=== PATIENT | male | born 1955 | race Caucasian/White ===

== ENCOUNTER 2017-08-22 06:14 | Inpatient (IN) | payer MEDICARE ==
[2017-08-22] MEDS ORDERED: Sodium Chloride 0.9% 1,000 ML IV ONE (07:24)
--- NOTE | 2017-08-22 07:24 | C.PDOC ---
History Of Present Illness 62 years old male presents to ED for complaints of cramping abdominal pain that began yesterday, 2 hours after eating a burger. Patient states symptom associated with nausea, 10 episodes of vomiting, chills, and distention. Patient also states pain radiates to back and chest. Denies diarrhea, fever, coughing, or headache. Time Seen by Provider: 08/22/17 07:09 Chief Complaint (Nursing): Abdominal Pain History Per: Patient History/Exam Limitations: no limitations Onset/Duration Of Symptoms: Days (1) Current Symptoms Are (Timing): Still Present Location Of Pain/Discomfort: Diffuse Radiation Of Pain To:: Back, Chest Quality Of Discomfort: Cramping Associated Symptoms: Chills, Nausea, Vomiting, Back Pain, Chest Pain. denies: Fever, Diarrhea, Constipation, Urinary Symptoms Exacerbating Factors: None Alleviating Factors: None Last Bowel Movement: Today Recent travel outside of the [place]: No Past Medical History Reviewed: Historical Data, Nursing Documentation, Vital Signs Vital Signs: Last Vital Signs Temp 98.8 F 08/22/17 17:38 Pulse 84 08/22/17 17:38 Resp 18 08/22/17 17:38 BP 135/85 08/22/17 17:38 Pulse Ox 95 08/22/17 17:38 - Medical History PMH: HIV, Hypercholesterolemia - [facility] Procedures APPLICATION OF SPLINT (01/26/14) Family History: States: Unknown Family Hx - Social History Hx Tobacco Use: No Hx Alcohol Use: No Hx Substance Use: No - Immunization History Hx Tetanus Toxoid Vaccination: No Hx Influenza Vaccination: No Hx Pneumococcal Vaccination: No Review Of Systems Constitutional: Positive for: Chills. Negative for: Fever Cardiovascular: Positive for: Chest Pain Respiratory: Negative for: Cough, Shortness of Breath Gastrointestinal: Positive for: Nausea, Vomiting (10 episodes ), Abdominal Pain. Negative for: Diarrhea Genitourinary: Negative for: Dysuria Musculoskeletal: Negative for: Arm Pain Neurological: Negative for: Weakness, Numbness, Headache Physical Exam - Physical Exam Appears: Well, Non-toxic, No Acute Distress Skin: Normal Color, Warm, Dry Head: Atraumatic, Normacephalic Eye(s): bilateral: Normal Inspection, PERRL, EOMI Oral Mucosa: Moist Neck: Supple Chest: Symmetrical, No Tenderness Cardiovascular: Rhythm Regular, No Murmur Respiratory: Normal Breath Sounds, No Decreased Breath Sounds, No Rales, No Rhonchi, No Wheezing Gastrointestinal/Abdominal: Soft, Tenderness (RUQ, LUQ, and LLQ) Extremity: Normal ROM, No Tenderness, No Pedal Edema, Other (Brace on left leg) Extremity: Bilateral: Normal Color And Temperature, Normal ROM Neurological/Psych: Oriented x3, Normal Speech, Normal Cognition Gait: Steady ED Course And Treatment - Laboratory Results Result Diagrams: 08/22/17 07:39 08/22/17 07:39 O2 Sat by Pulse Oximetry: 98 (RA) Pulse Ox Interpretation: Normal - Other Rad CXR X-Ray: Viewed By Me, Read By Radiologist Interpretation: HISTORY: chest pain and vomiting. COMPARISON: Chest radiographs 10/26/2012. FINDINGS: LUNGS: No active pulmonary disease. Right hemidiaphragm appears mildly elevated from an indeterminate etiology. Linear surgical material is seen at the mid right lung zone, presumably suture material. PLEURA: No significant pleural effusion identified, no pneumothorax apparent. CARDIOVASCULAR: Normal. OSSEOUS STRUCTURES: No significant abnormalities. VISUALIZED UPPER ABDOMEN: Normal. OTHER FINDINGS: None. IMPRESSION: No interval acute cardiopulmonary disease appreciable. Postop changes again seen mid right lung. - CT Scan/US Abdomen/Pelvis CT Other Rad Studies (CT/US): Read By Radiologist, Radiology Report Reviewed CT/US Interpretation: PROCEDURE: CT Abdomen and Pelvis with contrast. HISTORY : abdominal pain and vomiting. COMPARISON: None. TECHNIQUE: Contrast dose: Visipaque 320, 100 cc. Radiation dose: Total exam DLP = 728.58 mGy-cm. This CT exam was performed using one or more of the following dose reduction techniques: Automated exposure control, adjustment of the mA and/or kV according to patient size, and/or use of iterative reconstruction technique. FINDINGS: LOWER THORAX: Linear atelectasis or fibrosis in the bilateral lung bases. Nonspecific markedly hyperdense, linear radiodensity is seen in the right lower lobe base abutting the right hemidiaphragm, potentially metallic. No infiltrate or pleural effusion bilaterally. Cardiac size appears normal. LIVER: Hepatic steatosis is noted without definitive focal mass or intrahepatic biliary dilatation evident. GALLBLADDER AND BILE DUCTS: Gallbladder is distended without prominent mural thickening however vázquez cholecystic reaction is questioned related to the neck at the candace hepatis it does not appear to be related to the pancreatic neck, the gastric antrum or the duodenum. Finally, although the hepatic flexure of the colon approaches area it appears separate. Clinically correlate for cholecystitis. Questionable choledocholithiasis and proximal CBD. PANCREAS: Unremarkable. No gross lesion or ductal dilatation. SPLEEN: Unremarkable. ADRENALS: Unremarkable. No mass. KIDNEYS AND URETERS: Unremarkable. No hydronephrosis. No solid mass. VASCULATURE: Unremarkable. No aortic aneurysm. BOWEL: Unremarkable. No obstruction. No gross mural thickening. APPENDIX: Normal appendix. PERITONEUM : Unremarkable. No free fluid. No free air. LYMPH NODES: Unremarkable. No enlarged lymph nodes. BLADDER: Urine bladder is distended but thin and smooth walled. REPRODUCTIVE: Unremarkable. BONES: No acute fracture. OTHER FINDINGS: None. IMPRESSION: 1. Pattern suspicious for cholecystitis with choledocholithiasis in question at the proximal CBD. Consider follow-up ultrasonography or MRCP. 2. Hepatic steatosis. 3. No additional pertinent abdominal or pelvic findings. Abdomen US Other Rad Studies (CT/US): Read By Radiologist, Radiology Report Reviewed CT/US Interpretation: Abdominal ultrasound. History: Abdominal pain. Comparison: None available. Technique: Real-time sonography was performed through the abdomen. Findings: Liver: 16.5 centimeters in length. Increased echogenicity of the hepatic parenchymal cortex suggestive for fatty infiltration versus hepatic parenchymal disease. Clinical correlation. Gallbladder: Calculi and sludge. Gallbladder wall thickening measuring up to 5 millimeters. Associated gallbladder wall edema. Pericholecystic fluid. Negative sonographic Monreal's sign. Common bile duct measures 5.5 millimeters, within normal limits. Pancreas not well visualized. Spleen measures 9.2 centimeters in length, within normal limits. Visualized aorta and IVC are grossly preserved. Right kidney: 13.1 x 5.0 x 6.0 centimeters. No calculi or hydronephrosis. Left kidney: 13.2 x 6.5 x 6.3 centimeters. No calculi or hydronephrosis. Impression: 1. Cholelithiasis and sludge in the gallbladder with associated gallbladder wall thickening measuring up to 5 millimeters. Associated gallbladder wall edema and pericholecystic fluid. These findings may represent a cholecystitis. Clinical correlation. Correlation with nuclear medicine study may be helpful if clinically indicated. 2. Increased echogenicity of the hepatic parenchymal cortex suggestive for fatty infiltration versus hepatic parenchymal disease. Clinical correlation. 3. Pancreas not well visualized. Medical Decision Making Medical Decision Making: Plan: - Administered Pepcid, ZOfran and IV fluids. - Ordered EKG, CT abdomen/Pelvis, blood work, CXR, urinalysis, and US of abdomen. EKG: - Normal sinus rhythm at 60bpm - No axis - No ST wave changes. 1:13PM: - Spoke to hospitalist, Tanner Conroy, for admission. Disposition - Disposition Disposition: HOSPITALIZED Disposition Time: 13:31 Condition: GOOD - Clinical Impression Clinical Impression: Abdominal pain, Cholecystitis - Scribe Statement The provider has reviewed the documentation as recorded by the Scribe Davina Domínguez All medical record entries made by the Scribe were at my direction and personally dictated by me. I have reviewed the chart and agree that the record accurately reflects my personal performance of the history, physical exam, medical decision making, and the department course for this patient. I have also personally directed, reviewed, and agree with the discharge instructions and disposition. Decision To Admit - Pt Status Changed To: Hospital Disposition Of: Inpatient - Admit Certification Admit to Inpatient:: After my assessment, the patient will require hospitalization for at least two midnights. This is because of the severity of symptoms shown, intensity of services needed, and/or the medical risk in this patient being treated as an outpatient. - InPatient: Physician Admission Certification:: Pt presented with complaint of abdominal pain and vomitiing. Ct shows cholecystitis. Pt will be admitted to Medicine and surgery will follow. - . Bed Request Type: Regular Admitting Physician: August Conroy Patient Diagnosis: Cholecystitis, Abdominal pain
[2017-08-22] MEDS ORDERED: Sodium Chloride 0.9% 1,000 ML ONE (07:33)
[2017-08-22] MEDS ORDERED: Iohexol 240 (50 ml) ONE (07:33)
[2017-08-22 07:49] LABS: BASO % 0.1 % (0.0-2.0); EOS % 0.1 % (0.0-4.0); HEMOGLOBIN 14.4 g/dL (12.0-18.0); LYMPH # 0.3 K/uL (1.0-4.3); LYMPH % 4.2 % (20.0-40.0); MEAN CELL VOLUME 94.3 fL (80.0-94.0); MEAN CORPUSCULAR HEMOGLOBIN 33.6 pg (27.0-31.0); MEAN CORPUSCULAR HGB CONC 35.6 g/dL (33.0-37.0); MEAN PLATELET VOLUME 8.7 fL (7.2-11.7); MONO # 0.4 K/uL (0.0-0.8); MONO % 5.4 % (0.0-10.0); NEUT # 6.8 K/uL (1.8-7.0); NEUT % 90.2 % (50.0-75.0); PLATELET COUNT 266 K/uL (130-400); RBC 4.29 Mil/uL (4.40-5.90); WHITE BLOOD COUNT 7.5 K/uL (4.8-10.8)
[2017-08-22 08:06] LABS: ALB/GLOB RATIO 0.9 (1.0-2.1); ALBUMIN 4.4 g/dL (3.5-5.0); CALCIUM 8.9 mg/dl (8.6-10.4); GFR AFRICAN-AMERICAN > 60; GFR NON-AFRICAN AMERICAN > 60; LIPASE 88 U/L (23-300)
[2017-08-22 08:08] LABS: ALT/SGPT 445 U/L (21-72); AST/SGOT 651 U/L (17-59); BLOOD UREA NITROGEN 11 mg/dL (9-20)
[2017-08-22 08:14] LABS: URINE BILIRUBIN NEGATIVE (NEGATIVE); URINE BLOOD NEGATIVE (NEGATIVE); URINE CLARITY Clear (Clear); URINE COLOR Amber (YELLOW); URINE GLUCOSE (UA) NORMAL (Normal); URINE LEUKOCYTE ESTERASE NEG Leu/uL (Negative); URINE PROTEIN 1+ mg/dL (NEGATIVE)
[2017-08-22 08:18] LABS: BANDS 7 % (0-2); LYMPHOCYTE 5 % (20-40); MONOCYTE 7 % (0-10); NEUTROPHIL 81 % (50-75); PLATELET ESTIMATE NORMAL (NORMAL); TOTAL CELLS COUNTED 100
[2017-08-22] MEDS ORDERED: Iohexol 240 (50 ml) PO ONE (08:20)
[2017-08-22] MEDS ORDERED: Morphine 4 MG/ML VIAL IV ONE ×2 (08:27→13:06)
[2017-08-22] MEDS ORDERED: Morphine 4 MG/ML VIAL ONE ×2 (09:02→13:17)
[2017-08-22] MEDS ORDERED: Iodixanol 320 MG/ML 100 ML BOTTLE IV ONE (10:10)
--- NOTE | 2017-08-22 11:04 | RAD ---
HISTORY: chest pain and vomiting COMPARISON: Chest radiographs 10/26/2012. FINDINGS: LUNGS: No active pulmonary disease. Right hemidiaphragm appears mildly elevated from an indeterminate etiology. Linear surgical material is seen at the mid right lung zone, presumably suture material. PLEURA: No significant pleural effusion identified, no pneumothorax apparent. CARDIOVASCULAR: Normal. OSSEOUS STRUCTURES: No significant abnormalities. VISUALIZED UPPER ABDOMEN: Normal. OTHER FINDINGS: None. IMPRESSION: No interval acute cardiopulmonary disease appreciable. Postop changes again seen mid right lung.
--- NOTE | 2017-08-22 12:06 | CT ---
PROCEDURE: CT Abdomen and Pelvis with contrast HISTORY: abdominal pain and vomiting COMPARISON: None. TECHNIQUE: Contrast dose: Visipaque 320, 100 cc Radiation dose: Total exam DLP = 728.58 mGy-cm. This CT exam was performed using one or more of the following dose reduction techniques: Automated exposure control, adjustment of the mA and/or kV according to patient size, and/or use of iterative reconstruction technique. FINDINGS: LOWER THORAX: Linear atelectasis or fibrosis in the bilateral lung bases. Nonspecific markedly hyperdense, linear radiodensity is seen in the right lower lobe base abutting the right hemidiaphragm, potentially metallic. No infiltrate or pleural effusion bilaterally. Cardiac size appears normal. LIVER: Hepatic steatosis is noted without definitive focal mass or intrahepatic biliary dilatation evident. GALLBLADDER AND BILE DUCTS: Gallbladder is distended without prominent mural thickening however vázquez cholecystic reaction is questioned related to the neck at the candace hepatis it does not appear to be related to the pancreatic neck, the gastric antrum or the duodenum. Finally, although the hepatic flexure of the colon approaches area it appears separate. Clinically correlate for cholecystitis. Questionable choledocholithiasis and proximal CBD. PANCREAS: Unremarkable. No gross lesion or ductal dilatation. SPLEEN: Unremarkable. ADRENALS: Unremarkable. No mass. KIDNEYS AND URETERS: Unremarkable. No hydronephrosis. No solid mass. VASCULATURE: Unremarkable. No aortic aneurysm. BOWEL: Unremarkable. No obstruction. No gross mural thickening. APPENDIX: Normal appendix. PERITONEUM: Unremarkable. No free fluid. No free air. LYMPH NODES: Unremarkable. No enlarged lymph nodes. BLADDER: Urine bladder is distended but thin and smooth walled. REPRODUCTIVE: Unremarkable. BONES: No acute fracture. OTHER FINDINGS: None. IMPRESSION: 1. Pattern suspicious for cholecystitis with choledocholithiasis in question at the proximal CBD. Consider follow-up ultrasonography or MRCP. 2. Hepatic steatosis. 3. No additional pertinent abdominal or pelvic findings.
--- NOTE | 2017-08-22 14:15 | US ---
Abdominal ultrasound History: Abdominal pain. Comparison: None available. Technique: Real-time sonography was performed through the abdomen. Findings: Liver: 16.5 centimeters in length. Increased echogenicity of the hepatic parenchymal cortex suggestive for fatty infiltration versus hepatic parenchymal disease. Clinical correlation. Gallbladder: Calculi and sludge. Gallbladder wall thickening measuring up to 5 millimeters. Associated gallbladder wall edema. Pericholecystic fluid. Negative sonographic Monreal's sign. Common bile duct measures 5.5 millimeters, within normal limits. Pancreas not well visualized. Spleen measures 9.2 centimeters in length, within normal limits. Visualized aorta and IVC are grossly preserved. Right kidney: 13.1 x 5.0 x 6.0 centimeters. No calculi or hydronephrosis. Left kidney: 13.2 x 6.5 x 6.3 centimeters. No calculi or hydronephrosis. Impression: 1. Cholelithiasis and sludge in the gallbladder with associated gallbladder wall thickening measuring up to 5 millimeters. Associated gallbladder wall edema and pericholecystic fluid. These findings may represent a cholecystitis. Clinical correlation. Correlation with nuclear medicine study may be helpful if clinically indicated. 2. Increased echogenicity of the hepatic parenchymal cortex suggestive for fatty infiltration versus hepatic parenchymal disease. Clinical correlation. 3. Pancreas not well visualized.
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
--- NOTE | 2017-08-22 14:56 | CP.PCM.CON ---
<Chema Schroeder - Last Filed: 08/22/17 14:51> History of Present Illness - History of Present Illness History of Present Illness: GI Consult Note - Marium Schroeder PGY2 HPI: Patient is a 62yo male with past medical history of HIV on HAART therapy, asthma, HLD that presents c/o right upper quadrant abdominal pain since yesterday afternoon. Patient reported eating a burger for lunch and thereafter experiencing abdominal pain with nausea and non-bilious, non-bloody vomiting. He reports no apparent alleviating or exacerbating factors, pain is 10/10 and non-radiating. Prior to this, patient states he was in his usual state of health. Denies chest pain, palpitations, SOB, fever, chills, cough, focal weakness, numbness, tingling. 12point ROS as per above otherwise negative PMH: as stated above PSH: AVM Malformation repair Allergies: seasonal allergies Social Hx: Denies alcohol, tobacco and illicit drug use; retired Family Hx: Sister: Breast Ca; no family history of colon cancer Endo Hx: Colonoscopy 2 years prior [place] [facility] [place] Past Patient History - Infectious Disease Hx of Infectious Diseases: None - Past Social History Smoking Status: Never Smoked - CARDIAC Hx Hypercholesterolemia: Yes - NEUROLOGICAL HX Cerebrovascular Accident: Yes (left sided weakness) - HEMATOLOGICAL/ONCOLOGICAL Hx Human Immunodeficiency Virus (HIV): Yes - PSYCHIATRIC Hx Substance Use: No - SURGICAL HISTORY Hx Surgeries: No - ANESTHESIA Hx Anesthesia: No Meds Allergies/Adverse Reactions: Allergies Allergy/AdvReac Type Severity Reaction Status Date / Time No Known Allergies Allergy Verified 08/22/17 06:32 - Medications Medications: Current Medications Sodium Chloride (Sodium Chloride 0.9%) 1,000 mls @ 100 mls/hr IV .Q10H [facility] Ondansetron HCl (Zofran Inj) 4 mg IVP Q6H PRN PRN Reason: Nausea/Vomiting Pantoprazole Sodium (Protonix Inj) 40 mg IVP DAILY [facility] Physical Exam - Constitutional Appears: No Acute Distress - Head Exam Head Exam: ATRAUMATIC, NORMAL INSPECTION, NORMOCEPHALIC - Eye Exam Eye Exam: EOMI, PERRL - ENT Exam ENT Exam: Mucous Membranes Moist - Respiratory Exam Respiratory Exam: Clear to Auscultation Bilateral. absent: Rales, Rhonchi, Wheezes - Cardiovascular Exam Cardiovascular Exam: RRR, +S1, +S2. absent: Clicks, Gallop, JVD, Rubs - GI/Abdominal Exam GI & Abdominal Exam: Soft, Tenderness (RUQ abdominal tenderness). absent: Distended, Firm, Guarding, Rigid Additional comments: no palpable hepatosplenomegaly - Extremities Exam Extremities exam: Positive for: normal inspection. Negative for: pedal edema - Neurological Exam Neurological exam: Alert, CN II-XII Intact, Oriented x3 - Psychiatric Exam Psychiatric exam: Normal Affect, Normal Mood - Skin Skin Exam: Dry, Intact, Normal Color, Warm Results - Vital Signs Recent Vital Signs: Last Vital Signs Temp 98.2 F 08/22/17 06:24 Pulse 66 08/22/17 06:24 Resp 20 08/22/17 06:24 BP 151/87 H 08/22/17 06:24 Pulse Ox 98 08/22/17 14:36 - Labs Result Diagrams: 08/22/17 07:39 08/22/17 07:39 Labs: Laboratory Results - last 24 hr 08/22/17 08/22/17 08/22/17 07:39 07:39 07:54 WBC 7.5 RBC 4.29 L Hgb 14.4 Hct 40.5 MCV 94.3 H MCH 33.6 H MCHC 35.6 RDW 13.0 Plt Count 266 MPV 8.7 Neut % (Auto) 90.2 H Lymph % (Auto) 4.2 L Williamson % (Auto) 5.4 Eos % (Auto) 0.1 Baso % (Auto) 0.1 Neut # (Auto) 6.8 Lymph # (Auto) 0.3 L Williamson # (Auto) 0.4 Eos # (Auto) 0.0 Baso # (Auto) 0.0 Neutrophils % (Manual) 81 H Band Neutrophils % 7 H Lymphocytes % (Manual) 5 L Monocytes % (Manual) 7 Platelet Estimate Normal RBC Morphology Normal Sodium 140 Potassium 4.0 Chloride 102 Carbon Dioxide 28 Anion Gap 14 BUN 11 Creatinine 0.7 L Est GFR ( Amer) > 60 Est GFR (Non-Af Amer) > 60 Random Glucose 145 H Calcium 8.9 Total Bilirubin 2.8 H AST 651 H ALT 445 H Alkaline Phosphatase 227 H Troponin I < 0.0120 Total Protein 9.2 H Albumin 4.4 Globulin 4.9 H Albumin/Globulin Ratio 0.9 L Lipase 88 Urine Color Mitra Urine Clarity Clear Urine pH 6.0 Ur Specific Madison 1.021 Urine Protein 1+ H Urine Glucose (UA) Normal Urine Ketones Negative Urine Blood Negative Urine Nitrate Negative Urine Bilirubin Negative Urine Urobilinogen 4.0 Ur Leukocyte Esterase Neg Urine WBC (Auto) < 1 Urine RBC (Auto) 10 H Assessment & Plan - Assessment and Plan (Free Text) Plan: 62yo male with history of HIV on HAART therapy, asthma, HLD presents c/o RUQ abdominal pain secondary to acute cholecystitis 1. Acute cholecystitis 2. Elevated liver enzymes r/o choledocholithiasis 3. Hx of HIV -MRCP pending to evaluate for CBD stone -Potential ERCP to be scheduled for tomorrow -NPO after midnight -Surgical evaluation -Continue IV antibiotics as per primary team -Pain control -Repeat LFT's/INR in the AM -Hepatitis panel Patient seen and case discussed/reviewed with attending, Dr. Santos <Miguel Santos - Last Filed: 08/22/17 15:17> Meds - Medications Medications: Current Medications Efavirenz/Emtricitabine/Tenofovir (Atripla 600 Mg-200 Mg-300 Mg) tab PO DAILY [facility] PRN Reason: Protocol Sodium Chloride (Sodium Chloride 0.9%) 1,000 mls @ 100 mls/hr IV .Q10H [facility] Levetiracetam 500 mg/ Sodium (Chloride) 105 mls @ 420 mls/hr IVPB Q12H [facility] Piperacillin Sod/Tazobactam (Sod 3.375 gm/ Sodium Chloride) 100 mls @ 200 mls/ hr IVPB Q8H [facility] PRN Reason: Protocol Morphine Sulfate (Morphine) 2 mg IVP Q4H PRN PRN Reason: Pain, moderate (4-7) Ondansetron HCl (Zofran Inj) 4 mg IVP Q6H PRN PRN Reason: Nausea/Vomiting Pantoprazole Sodium (Protonix Inj) 40 mg IVP DAILY [facility] Results - Vital Signs Recent Vital Signs: Last Vital Signs Temp 98.2 F 08/22/17 06:24 Pulse 66 08/22/17 06:24 Resp 20 08/22/17 06:24 BP 151/87 H 08/22/17 06:24 Pulse Ox 98 08/22/17 14:36 - Labs Result Diagrams: 08/22/17 07:39 08/22/17 07:39 Labs: Laboratory Results - last 24 hr 08/22/17 08/22/17 08/22/17 07:39 07:39 07:54 WBC 7.5 RBC 4.29 L Hgb 14.4 Hct 40.5 MCV 94.3 H MCH 33.6 H MCHC 35.6 RDW 13.0 Plt Count 266 MPV 8.7 Neut % (Auto) 90.2 H Lymph % (Auto) 4.2 L Williamson % (Auto) 5.4 Eos % (Auto) 0.1 Baso % (Auto) 0.1 Neut # (Auto) 6.8 Lymph # (Auto) 0.3 L Williamson # (Auto) 0.4 Eos # (Auto) 0.0 Baso # (Auto) 0.0 Neutrophils % (Manual) 81 H Band Neutrophils % 7 H Lymphocytes % (Manual) 5 L Monocytes % (Manual) 7 Platelet Estimate Normal RBC Morphology Normal Sodium 140 Potassium 4.0 Chloride 102 Carbon Dioxide 28 Anion Gap 14 BUN 11 Creatinine 0.7 L Est GFR ( Amer) > 60 Est GFR (Non-Af Amer) > 60 Random Glucose 145 H Calcium 8.9 Total Bilirubin 2.8 H AST 651 H ALT 445 H Alkaline Phosphatase 227 H Total Creatine Kinase Troponin I < 0.0120 Total Protein 9.2 H Albumin 4.4 Globulin 4.9 H Albumin/Globulin Ratio 0.9 L Lipase 88 Urine Color Mitra Urine Clarity Clear Urine pH 6.0 Ur Specific [place] 1.021 Urine Protein 1+ H Urine Glucose (UA) Normal Urine Ketones Negative Urine Blood Negative Urine Nitrate Negative Urine Bilirubin Negative Urine Urobilinogen 4.0 Ur Leukocyte Esterase Neg Urine WBC (Auto) < 1 Urine RBC (Auto) 10 H 08/22/17 14:52 WBC RBC Hgb Hct MCV MCH MCHC RDW Plt Count MPV Neut % (Auto) Lymph % (Auto) Williamson % (Auto) Eos % (Auto) Baso % (Auto) Neut # (Auto) Lymph # (Auto) Williamson # (Auto) Eos # (Auto) Baso # (Auto) Neutrophils % (Manual) Band Neutrophils % Lymphocytes % (Manual) Monocytes % (Manual) Platelet Estimate RBC Morphology Sodium Potassium Chloride Carbon Dioxide Anion Gap BUN Creatinine Est GFR ( Amer) Est GFR (Non-Af Amer) Random Glucose Calcium Total Bilirubin AST ALT Alkaline Phosphatase Total Creatine Kinase 46 L Troponin I Total Protein Albumin Globulin Albumin/Globulin Ratio Lipase Urine Color Urine Clarity Urine pH Ur Specific Madison Urine Protein Urine Glucose (UA) Urine Ketones Urine Blood Urine Nitrate Urine Bilirubin Urine Urobilinogen Ur Leukocyte Esterase Urine WBC (Auto) Urine RBC (Auto) Attending/Attestation - Attestation I have personally seen and examined this patient.: Yes I have fully participated in the care of the patient.: Yes I have reviewed all pertinent clinical information: Yes Notes (Text): 08/22/17 15:12 I have seen and examined patient with GI fellow and electromedical equipment technician. Agree with above documentation with the following additions. In brief, this is a 62 year old male with history of HIV on HAART, hyperlipidemia who presents to hospital with complaint of sudden onset abdominal pain yesterday following meal consumption. Prior to this he was in usual state of health and is typically physically active and walks several miles per day. He describes eating a burger and developing sharp 10/10 intensity RUQ abdominal pain that radiates to back. This was associated with nausea and non-bloody emesis. He denies fever/ chills, weight loss, rectal bleeding, or similar prior episodes. No prior history of liver disease. He had a colonoscopy 2 years ago which was normal as per patient. HIV on HAART Hyperlipidemia Abdominal pain, transaminitis Abdominal US and CT imaging reviewed by me showing thickened gallbladder wall with elisa-cholecystic fluid suggestive of cholecystitis. CBD normal caliber on abdominal US, though CT did not correspond appropriately - NPO - Begin antibiotic therapy - Obtain blood cultures - Fractionate bilirubin - Continue to monitor LFTs, obtain viral hepatitis panel - Obtain MRCP to rule out choledocholithiasis - Follow up surgical recommendations - Following imaging results, will determine whether patient would benefit from further endoscopic intervention with ERCP +/- EUS. Will continue to monitor patient clinical course.
[2017-08-22 15:21] LABS: CK-MB < 0.22 ng/mL (0.0-3.38)
[2017-08-22] MEDS: Sodium Chloride 0.9% 1,000 ML IV SCH (16:04)
[2017-08-22] MEDS: levETIRAcetam 500 MG in Sodium Chloride 0.9% 100 ML IVPB SCH (16:05)
[2017-08-22] MEDS: Efavirenz/Emtricitabine/Teno 1 TAB PO SCH (16:11)
[2017-08-22 16:20] LABS: INR 1.2; PROTHROMBIN TIME 12.8 SECONDS (9.7-12.2)
[2017-08-22 16:42] LABS: T4 6.14 ug/dL (5.5-11.0)
[2017-08-22 16:57] LABS: HEPATITIS B SURFACE AG Negative (NEGATIVE)
[2017-08-22] MEDS ORDERED: Piperacillin/Tazobact 3.375 GM in Sodium Chloride 100 ML IVPB SCH (17:00)
[2017-08-22 17:03] LABS: HEPATITIS B CORE AB NEGATIVE (NEGATIVE)
[2017-08-22 17:14] LABS: HEPATITIS C ANTIBODY NEGATIVE (NEGATIVE)
[2017-08-22 18:00] LABS: HEPATITIS A IGM NEGATIVE (NEGATIVE)
[2017-08-22 20:16] LABS: CK-MB 0.22 ng/mL (0.0-3.38)
[2017-08-22] MEDS: Fluticasone-Salmeterol 500-50mcg Diskus INH SCH (20:16)
[2017-08-22] MEDS: Piperacill/Tazo 3.375gm in Dex 3.375 GM/50 ML BAG IVPB SCH (22:06)
[2017-08-23] MEDS: Sodium Chloride 0.9% 1,000 ML IV SCH ×3 (01:00→10:32)
[2017-08-23] MEDS: Morphine 4 MG/ML VIAL IVP PRN ×3 (03:02→20:19)
[2017-08-23] MEDS: levETIRAcetam 500 MG in Sodium Chloride 0.9% 100 ML IVPB SCH ×2 (03:32→16:54)
--- NOTE | 2017-08-23 05:48 | CARD ---
APPROVED REPORT EKG Measurement Heart [id number] <Conclusion> Normal sinus rhythm Normal ECG
[2017-08-23] MEDS: Piperacill/Tazo 3.375gm in Dex 3.375 GM/50 ML BAG IVPB SCH ×4 (05:49→22:05)
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
[2017-08-23 07:04] LABS: BASO % 0.1 % (0.0-2.0); EOS % 0.1 % (0.0-4.0); HEMOGLOBIN 13.6 g/dL (12.0-18.0); LYMPH # 0.8 K/uL (1.0-4.3); LYMPH % 7.2 % (20.0-40.0); MEAN CELL VOLUME 94.9 fL (80.0-94.0); MEAN CORPUSCULAR HEMOGLOBIN 32.9 pg (27.0-31.0); MEAN CORPUSCULAR HGB CONC 34.6 g/dL (33.0-37.0); MEAN PLATELET VOLUME 8.6 fL (7.2-11.7); MONO # 0.5 K/uL (0.0-0.8); MONO % 4.8 % (0.0-10.0); NEUT # 9.8 K/uL (1.8-7.0); NEUT % 87.8 % (50.0-75.0); PLATELET COUNT 223 K/uL (130-400); RBC 4.14 Mil/uL (4.40-5.90); RED CELL DISTRIBUTION WIDTH 13.3 % (11.5-14.5); WHITE BLOOD COUNT 11.2 K/uL (4.8-10.8)
[2017-08-23 07:23] LABS: ALB/GLOB RATIO 0.8 (1.0-2.1); ALBUMIN 3.7 g/dL (3.5-5.0); ALT/SGPT 267 U/L (21-72); AST/SGOT 193 U/L (17-59); BLOOD UREA NITROGEN 6 mg/dL (9-20); CALCIUM 8.5 mg/dl (8.6-10.4); GFR AFRICAN-AMERICAN > 60; GFR NON-AFRICAN AMERICAN > 60
[2017-08-23] MEDS: Fluticasone-Salmeterol 500-50mcg Diskus INH SCH ×2 (07:49→19:41)
[2017-08-23 08:16] LABS: BANDS 9 % (0-2); LYMPHOCYTE 6 % (20-40); MONOCYTE 6 % (0-10); NEUTROPHIL 79 % (50-75); PLATELET ESTIMATE NORMAL (NORMAL); TOTAL CELLS COUNTED 100
--- NOTE | 2017-08-23 09:58 | CP.PCM.PN ---
<Chema Schroeder - Last Filed: 08/23/17 09:53> Subjective - Date & Time of Evaluation Date of Evaluation: 08/23/17 Time of Evaluation: 09:53 - Subjective Subjective: GI Progress note - Marium Schroeder PGY2 Patient seen and examined at bedside this morning. No acute overnight events reported. MRCP results reviewed and discussed with patient. Denies abdominal pain, nausea, vomiting. Plan for cholecystectomy by surgical team today. 12point ROS as per above otherwise negative Objective - Vital Signs/Intake and Output Vital Signs (last 24 hours): Temp Pulse Resp BP Pulse Ox 98.1 F 89 20 126/71 94 L 08/23/17 08:27 08/23/17 08:27 08/23/17 08:27 08/23/17 08:27 08/23/17 08:27 Intake and Output: 08/23/17 08/23/17 06:59 18:59 Intake Total 700 Balance 700 - Medications Medications: Current Medications Efavirenz/Emtricitabine/Tenofovir (Atripla 600 Mg-200 Mg-300 Mg) 1 tab PO DAILY [facility] PRN Reason: Protocol Last Admin: 08/22/17 16:11 Dose: 1 tab Sodium Chloride (Sodium Chloride 0.9%) 1,000 mls @ 100 mls/hr IV .Q10H [facility] Last Admin: 08/23/17 05:58 Dose: 100 mls/hr Levetiracetam 500 mg/ Sodium (Chloride) 105 mls @ 420 mls/hr IVPB Q12H [facility] Last Admin: 08/23/17 03:32 Dose: 420 mls/hr Piperacillin Sod/Tazobactam Sod (Zosyn 3.375 Gm Iv Premix) 3.375 gm in 50 mls @ 100 mls/hr IVPB Q6H [facility] PRN Reason: Protocol Last Admin: 08/23/17 05:49 Dose: 100 mls/hr Morphine Sulfate (Morphine) 2 mg IVP Q4H PRN PRN Reason: Pain, moderate (4-7) Last Admin: 08/23/17 03:02 Dose: 2 mg Ondansetron HCl (Zofran Inj) 4 mg IVP Q6H PRN PRN Reason: Nausea/Vomiting Pantoprazole Sodium (Protonix Inj) 40 mg IVP DAILY [facility] Fluticasone/Salmeterol (Advair Diskus 500/50) 1 puff INH RQ12 [facility] Last Admin: 08/23/17 07:49 Dose: 1 puff - Labs Labs: 08/23/17 06:51 08/23/17 06:51 PT 12.8 SECONDS (9.7-12.2) H 08/22/17 16:04 INR 1.2 08/22/17 16:04 APTT 30 SECONDS (21-34) 08/22/17 16:04 - Constitutional Appears: No Acute Distress - Eye Exam Eye Exam: EOMI Pupil Exam: PERRL - ENT Exam ENT Exam: Mucous Membranes Moist - Neck Exam Neck Exam: Normal Inspection - Respiratory Exam Respiratory Exam: absent: Rales, Rhonchi, Wheezes - Cardiovascular Exam Cardiovascular Exam: RRR, +S1, +S2. absent: Gallop, JVD, Rubs - GI/Abdominal Exam GI & Abdominal Exam: Soft. absent: Distended, Firm, Guarding, Rigid, Tenderness , Rebound - Extremities Exam Extremities Exam: Normal Inspection. absent: Pedal Edema - Neurological Exam Neurological Exam: Alert, Awake, Oriented x3 - Psychiatric Exam Psychiatric exam: Normal Affect, Normal Mood - Skin Skin Exam: Dry, Intact, Normal Color, Warm Assessment and Plan - Assessment and Plan (Free Text) Plan: 62yo male with history of HIV on HAART therapy, asthma, HLD presents c/o RUQ abdominal pain secondary to acute cholecystitis 1. Acute cholecystitis 2. Abdominal pain w/ transaminitis 3. Hx of HIV on HAART therapy -MRCP results reviewed; no apparent CBD stone -No plan for ERCP at this present time, however should LFT's continue to trend upwards may schedule for ERCP/EUS on Monday -Surgery on board and reportedly plan for cholecystectomy later this afternoon -Continue IV antibiotics as per primary team -Pain control -NPO -Hepatitis panel negative -Repeat LFT's in the AM Patient seen and case discussed/reviewed with attending, Dr. Martinez <Eugenio Martinez - Last Filed: 08/23/17 11:16> Objective - Vital Signs/Intake and Output Vital Signs (last 24 hours): Temp Pulse Resp BP Pulse Ox 98.1 F 89 20 126/71 94 L 08/23/17 08:27 08/23/17 08:27 08/23/17 08:27 08/23/17 08:27 08/23/17 08:27 Intake and Output: 08/23/17 08/23/17 06:59 18:59 Intake Total 700 Balance 700 - Medications Medications: Current Medications Efavirenz/Emtricitabine/Tenofovir (Atripla 600 Mg-200 Mg-300 Mg) 1 tab PO DAILY [facility] PRN Reason: Protocol Last Admin: 08/23/17 10:32 Dose: Not Given Sodium Chloride (Sodium Chloride 0.9%) 1,000 mls @ 100 mls/hr IV .Q10H [facility] Last Admin: 08/23/17 10:32 Dose: Not Given Levetiracetam 500 mg/ Sodium (Chloride) 105 mls @ 420 mls/hr IVPB Q12H [facility] Last Admin: 08/23/17 03:32 Dose: 420 mls/hr Piperacillin Sod/Tazobactam Sod (Zosyn 3.375 Gm Iv Premix) 3.375 gm in 50 mls @ 100 mls/hr IVPB Q6H [facility] PRN Reason: Protocol Last Admin: 08/23/17 11:05 Dose: 100 mls/hr Morphine Sulfate (Morphine) 2 mg IVP Q4H PRN PRN Reason: Pain, moderate (4-7) Last Admin: 08/23/17 10:36 Dose: 2 mg Ondansetron HCl (Zofran Inj) 4 mg IVP Q6H PRN PRN Reason: Nausea/Vomiting Pantoprazole Sodium (Protonix Inj) 40 mg IVP DAILY [facility] Last Admin: 08/23/17 09:50 Dose: 40 mg Fluticasone/Salmeterol (Advair Diskus 500/50) 1 puff INH RQ12 [facility] Last Admin: 08/23/17 07:49 Dose: 1 puff - Labs Labs: 08/23/17 06:51 08/23/17 06:51 PT 12.8 SECONDS (9.7-12.2) H 08/22/17 16:04 INR 1.2 08/22/17 16:04 APTT 30 SECONDS (21-34) 08/22/17 16:04 Attending/Attestation - Attestation I have personally seen and examined this patient.: Yes I have fully participated in the care of the patient.: Yes I have reviewed all pertinent clinical information, including history, physical exam and plan: Yes Notes (Text): 08/23/17 11:16 62 year old male with HIV a/w abdominal pain, elevated lfts, gallstones. MRCP negative for choledocholithiasis. May have passed stone. LFTs may lag behind. Proceed with cholecystectomy. R/o other chronic liver disease. Trend lfts. If no improvement, may consider EUS/ERCP monday.
[2017-08-23] MEDS: Efavirenz/Emtricitabine/Teno 1 TAB PO SCH (10:32)
--- NOTE | 2017-08-23 10:46 | MRI ---
PROCEDURE: Magnetic Resonance Cholangiopancreatography HISTORY: COMPARISON: Abdominal ultrasound and CT scan of the abdomen pelvis dated 08/22/2017. TECHNIQUE: Multiplanar, multisequence MR images of the abdomen were obtained, including heavily T2 weighted MRCP images of the biliary system. Rotating maximum intensity projection images of the biliary system were generated. FINDINGS: MRCP: The common bile duct is of a normal caliber. No evidence of choledocholithiasis. No intrahepatic biliary ductal dilatation. LIVER: Unremarkable. GALLBLADDER: Minimal cholelithiasis. Gallbladder distention with wall edema. SPLEEN: Unremarkable. PANCREAS: Unremarkable. ADRENALS: Unremarkable. KIDNEYS: Unremarkable. AORTA: No aneurysm. ASCITES: None. OTHER FINDINGS: None. IMPRESSION: Cholelithiasis with gallbladder wall thickening/edema may represent acute cholecystitis in the appropriate clinical setting. No evidence of choledocholithiasis. CBD within normal limits.
[2017-08-23] MEDS ORDERED: Propofol 10 mg/ml Inj (20 ML) ONE (12:00)
[2017-08-23] MEDS ORDERED: Midazolam 2 MG/2 ML VIAL ONE (12:00)
[2017-08-23] MEDS ORDERED: Neostigmine Methylsulfate 3mg/3ml Syringe IV ONE (12:26)
[2017-08-23] MEDS ORDERED: Oxycodone/Acetaminophen 5/325 mg Tab PO PRN (13:33)
[2017-08-23] MEDS: HYDROmorphone 0.5 mg/0.5 ml ISec IVP PRN ×4 (13:47→14:29)
[2017-08-23] MEDS ORDERED: Lactated Ringer's 1,000 ML IV ONE (14:15)
--- NOTE | 2017-08-23 19:59 | CON ---
DATE: ATTENDING PHYSICIAN: Mandi Sylvester DO REASON FOR CONSULTATION: AVM and CVA history and clearance before the surgery. HISTORY OF PRESENT ILLNESS: The patient is a 62-year-old gentleman with past medical history of HIV, hyperlipidemia, CVA, neuropathy, status post AVM, thrombectomy in 2006 and status post left-sided weakness post-intervention at by Dr. Celestin. The patient has been under the care of Dr. 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 The patient denies any complaints. No worsening of weakness, loss of consciousness, no history of seizures. The patient is stable neuro mann. The patient was admitted basically for abdominal pain and nausea and vomiting, and the patient has been scheduled for GI series and for possible abdominal surgery. Neuro consult was requested for clearance considering the patient's history of AVM. PAST MEDICAL HISTORY: As mentioned above. SOCIAL HISTORY: Denies alcohol abuse or drug abuse. Drinks socially. ALLERGIES: NO KNOWN ALLERGIC REACTIONS TO MEDICATIONS. THE PATIENT HAS SEASONAL ALLERGY. MEDICATIONS: , levetiracetam, Lipitor, Advair, aspirin. REVIEW OF SYSTEMS: As per H and P and ER note reviewed. PHYSICAL EXAMINATION: VITAL SIGNS: Blood pressure 126/71, pulse 89, respirations 20, temperature 98.1. MENTAL STATE: The patient is alert, awake, and oriented x3. Normal naming, repetition and comprehension. No agnosia, no apraxia. No right to left confusion. No finger agnosia. Double simultaneous stimulation intact. Cranial nerves: Pupils are symmetric and reactive. No facial asymmetry. No field defect. Tongue midline. Gag intact. Accessory nerve intact. There is some mild left central facial palsy. No field defect. Saccadic and pursuit eye movement intact. NECK: Supple. MOTOR: Slightly increased tone in the upper extremity on the left side. There is no pronation drift. Fine finger movement, finger tapping, alternative movement intact. Upper extremities, bilateral deltoid, elbow and lead producer 5/5, slightly on the left is 5-/5. Left hip flexion 4/5, knee flexion and extension 4/5, ankle 2-3/5. Right hip, knee and ankle 5/5. Deep tendon reflexes 2+ in the left upper, 3 at the knee and ankles. There is 2-3 beats of clonus on the right hip, knee, ankle 5/5. Plantars equivocal on the left, flexion on the right. SENSORY: Pinprick to light touch is slightly increased distally on the left lower extremity only, position intact. Coordination and [id number]-[id number]-mrna intact. Romberg is negative. IMAGING: No imaging of the brain recently. The patient had imaging in the past. 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 The patient has not had seizures for some time. The patient will need to take his levetiracetam before the surgery. If the patient is n.p.o., the patient should take it intravenously. Neuro mann, the patient is stable. No further workup recommended. The patient is cleared for surgery, calculated risk of complications to be considered. No contraindication for surgical intervention at this point. Thank you for the consultation. I will sign off the case. If needed, Dr. Jo will be on tomorrow morning. Arnie Blanchard MD
[2017-08-24] MEDS: Morphine 4 MG/ML VIAL IVP PRN ×5 (00:04→22:17)
--- NOTE | 2017-08-24 01:34 | OP ---
PROCEDURE DATE: 08/23/2017 PREOPERATIVE DIAGNOSIS: Acute cholecystitis. POSTOPERATIVE DIAGNOSIS: Acute cholecystitis. PROCEDURE PERFORMED: Laparoscopic cholecystectomy and repair of umbilical hernia. SURGEON: Jarad Maldonado MD ANESTHESIA: General. BLOOD LOSS: 100 mL. POSTOPERATIVE CONDITION: Stable. INDICATIONS FOR SURGERY: A 62-year-old male with acute cholecystitis, taken to the OR for laparoscopic cholecystectomy. GROSS FINDINGS: The gallbladder was acutely inflamed. There were adhesions of the omentum to both the gallbladder and to the liver. The adhesions had to be taken down quite carefully to avoid liver bleeding. The gallbladder was acutely inflamed with a thickened wall and had to be decompressed prior to removal. Both the cystic duct, common duct, and the cystic duct gallbladder junction were clearly identified prior to clipping the cystic duct. An umbilical hernia was encountered early in the procedure and repaired during the closure. DESCRIPTION OF THE PROCEDURE: The patient was taken to the operating room. General anesthesia was administered. The abdomen was prepped and draped. Periumbilical cutdown was performed. A small umbilical hernia was noted, and a blunt port was inserted through the hernia site. The abdomen was insufflated with CO2 and under direct vision, the remaining ports were placed. Next, the omentum was carefully taken off the liver bed using Endoshear scissors. During the end parts of this dissection, a complex tear was noted within the medial liver lobe. The bleeding was then repaired laparoscopically. Next, the gallbladder was decompressed and retracted. The cystic duct was carefully dissected free. The cystic duct anatomy was delineated as above, and it was clipped and divided. The cystic artery was identified, clipped and divided. The gallbladder was removed from the bed using the cautery. Bleeding in the bed was controlled using the cautery. The abdomen was irrigated with saline until clear. Bin drain was left in the gallbladder bed, and the ports were removed. The hernia was repaired with a Prolene suture and the tissue flap closure. The remaining wounds were closed with simple subcuticular Monocryl sutures. The patient tolerated the procedure well. Returned to recovery room in stable condition. Jarad Maldonado MD [facility] # [id number]
[2017-08-24] MEDS: levETIRAcetam 500 MG in Sodium Chloride 0.9% 100 ML IVPB SCH ×2 (03:56→19:07)
[2017-08-24] MEDS: Piperacill/Tazo 3.375gm in Dex 3.375 GM/50 ML BAG IVPB SCH ×4 (05:20→22:17)
--- NOTE | 2017-08-24 06:57 | CP.PCM.PN ---
<Chema Schroeder - Last Filed: 08/24/17 08:51> Subjective - Date & Time of Evaluation Date of Evaluation: 08/24/17 Time of Evaluation: 06:54 - Subjective Subjective: GI Progress note - Marium Schroeder PGY2 Patient seen and examined at bedside this morning. No acute overnight events or new complaints reported. Patient is s/p lap cedric with cindy drain in place with < 25cc of sanguinous fluid noted. Reports some mild-mod pain post procedure that is controlled with current medications. Otherwise, denies nausea , vomiting, fever, chills. 12point ROS as per above otherwise negative Objective - Vital Signs/Intake and Output Vital Signs (last 24 hours): Temp Pulse Resp BP Pulse Ox 98.4 F 80 20 115/74 95 08/24/17 04:05 08/24/17 04:05 08/24/17 04:05 08/24/17 04:05 08/24/17 04:05 Intake and Output: 08/23/17 08/24/17 18:59 06:59 Intake Total 1000 900 Output Total 310 Balance 1000 590 - Medications Medications: Current Medications Efavirenz/Emtricitabine/Tenofovir (Atripla 600 Mg-200 Mg-300 Mg) 1 tab PO DAILY [facility] PRN Reason: Protocol Last Admin: 08/23/17 10:32 Dose: Not Given Sodium Chloride (Sodium Chloride 0.9%) 1,000 mls @ 100 mls/hr IV .Q10H [facility] Last Admin: 08/23/17 10:32 Dose: Not Given Levetiracetam 500 mg/ Sodium (Chloride) 105 mls @ 420 mls/hr IVPB Q12H [facility] Last Admin: 08/24/17 03:56 Dose: 420 mls/hr Piperacillin Sod/Tazobactam Sod (Zosyn 3.375 Gm Iv Premix) 3.375 gm in 50 mls @ 100 mls/hr IVPB Q6H [facility] PRN Reason: Protocol Last Admin: 08/24/17 05:20 Dose: 100 mls/hr Morphine Sulfate (Morphine) 2 mg IVP Q4H PRN PRN Reason: Pain, moderate (4-7) Last Admin: 08/24/17 05:21 Dose: 2 mg Ondansetron HCl (Zofran Inj) 4 mg IVP Q6H PRN PRN Reason: Nausea/Vomiting Oxycodone/Acetaminophen (Percocet 5/325 Mg Tab) 2 tab PO Q4H PRN PRN Reason: pain Stop: 08/26/17 13:34 Pantoprazole Sodium (Protonix Inj) 40 mg IVP DAILY [facility] Last Admin: 08/23/17 09:50 Dose: 40 mg Fluticasone/Salmeterol (Advair Diskus 500/50) 1 puff INH RQ12 [facility] Last Admin: 08/23/17 19:41 Dose: 1 puff - Labs Labs: 08/23/17 06:51 08/23/17 06:51 PT 12.8 SECONDS (9.7-12.2) H 08/22/17 16:04 INR 1.2 08/22/17 16:04 APTT 30 SECONDS (21-34) 08/22/17 16:04 - Constitutional Appears: No Acute Distress - Head Exam Head Exam: ATRAUMATIC, NORMOCEPHALIC - Eye Exam Eye Exam: EOMI, Scleral icterus Pupil Exam: PERRL - Respiratory Exam Respiratory Exam: Clear to Ausculation Bilateral. absent: Rales, Rhonchi, Wheezes - Cardiovascular Exam Cardiovascular Exam: RRR, +S1, +S2. absent: Gallop, JVD, Rubs - GI/Abdominal Exam GI & Abdominal Exam: Soft, Tenderness. absent: Distended, Firm, Guarding, Rigid Additional comments: cindy drain in place with < 25cc drainage noted - Neurological Exam Neurological Exam: Alert, Awake, Oriented x3 - Psychiatric Exam Psychiatric exam: Normal Affect, Normal Mood - Skin Skin Exam: Dry, Intact, Warm Assessment and Plan - Assessment and Plan (Free Text) Plan: 62yo male with history of HIV on HAART therapy, asthma, HLD presents c/o RUQ abdominal pain secondary to acute cholecystitis 1. Acute cholecystitis 2. Abdominal pain w/ transaminitis 3. Hx of HIV on HAART therapy -LFT's this morning reviewed and downtrending at this time -No plan for ERCP at this present time, however we will review tomorrows labs; should they trend upwards may schedule for ERCP/EUS on Monday -MRCP results reviewed; no apparent CBD stone -Surgery on board and patient is s/p lap cedric with cindy drain in place -Continue IV antibiotics as per primary team -Pain control -NPO -Hepatitis panel negative Patient seen and case discussed/reviewed with attending, Dr. Santos <Miguel Santos - Last Filed: 08/24/17 09:43> Objective - Vital Signs/Intake and Output Vital Signs (last 24 hours): Temp Pulse Resp BP Pulse Ox 99.5 F 85 20 110/67 93 L 08/24/17 08:22 08/24/17 08:22 08/24/17 08:22 08/24/17 08:22 08/24/17 08:22 Intake and Output: 08/24/17 08/24/17 06:59 18:59 Intake Total 900 Output Total 310 Balance 590 - Medications Medications: Current Medications Efavirenz/Emtricitabine/Tenofovir (Atripla 600 Mg-200 Mg-300 Mg) 1 tab PO DAILY [facility] PRN Reason: Protocol Last Admin: 08/24/17 09:16 Dose: 1 tab Sodium Chloride (Sodium Chloride 0.9%) 1,000 mls @ 100 mls/hr IV .Q10H [facility] Last Admin: 08/23/17 10:32 Dose: Not Given Levetiracetam 500 mg/ Sodium (Chloride) 105 mls @ 420 mls/hr IVPB Q12H [facility] Last Admin: 08/24/17 03:56 Dose: 420 mls/hr Piperacillin Sod/Tazobactam Sod (Zosyn 3.375 Gm Iv Premix) 3.375 gm in 50 mls @ 100 mls/hr IVPB Q6H [facility] PRN Reason: Protocol Last Admin: 08/24/17 05:20 Dose: 100 mls/hr Morphine Sulfate (Morphine) 2 mg IVP Q4H PRN PRN Reason: Pain, moderate (4-7) Last Admin: 08/24/17 05:21 Dose: 2 mg Ondansetron HCl (Zofran Inj) 4 mg IVP Q6H PRN PRN Reason: Nausea/Vomiting Oxycodone/Acetaminophen (Percocet 5/325 Mg Tab) 2 tab PO Q4H PRN PRN Reason: pain Stop: 08/26/17 13:34 Pantoprazole Sodium (Protonix Inj) 40 mg IVP DAILY [facility] Last Admin: 08/24/17 09:15 Dose: 40 mg Fluticasone/Salmeterol (Advair Diskus 500/50) 1 puff INH RQ12 [facility] Last Admin: 08/24/17 07:50 Dose: 1 puff - Labs Labs: 08/24/17 08:00 08/24/17 08:00 PT 12.8 SECONDS (9.7-12.2) H 08/22/17 16:04 INR 1.2 08/22/17 16:04 APTT 30 SECONDS (21-34) 08/22/17 16:04 Attending/Attestation - Attestation I have personally seen and examined this patient.: Yes I have fully participated in the care of the patient.: Yes I have reviewed all pertinent clinical information, including history, physical exam and plan: Yes Notes (Text): 08/24/17 09:41 I have seen and examined patient with GI fellow and medical coding auditor. No acute events overnight. He endorses mild abdominal pain at surgical site but otherwise denies nausea, vomiting, fever/chills. Tolerating PO diet without difficulty. Review of vitals from today are normal. HIV on HAART Asthma Abdominal pain, transaminitis - acute cholecystitis, s/p cholecystectomy yesterday - Diet as tolerated - Continue with antibiotic therapy - LFTs trending down, continue to monitor - Follow up surgical recommendations - Will continue to monitor patient clinical course
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
[2017-08-24] MEDS: Fluticasone-Salmeterol 500-50mcg Diskus INH SCH ×2 (07:50→19:53)
[2017-08-24 08:32] LABS: ALB/GLOB RATIO 0.8 (1.0-2.1); ALBUMIN 3.3 g/dL (3.5-5.0); ALT/SGPT 190 U/L (21-72); AST/SGOT 136 U/L (17-59); BLOOD UREA NITROGEN 7 mg/dL (9-20); CALCIUM 8.1 mg/dl (8.6-10.4); GFR AFRICAN-AMERICAN > 60; GFR NON-AFRICAN AMERICAN > 60
[2017-08-24 08:50] LABS: BASO % 0.1 % (0.0-2.0); EOS % 0.4 % (0.0-4.0); LYMPH # 1.1 K/uL (1.0-4.3); LYMPH % 13.6 % (20.0-40.0); MEAN CELL VOLUME 94.6 fL (80.0-94.0); MEAN CORPUSCULAR HEMOGLOBIN 32.6 pg (27.0-31.0); MEAN CORPUSCULAR HGB CONC 34.5 g/dL (33.0-37.0); MEAN PLATELET VOLUME 8.5 fL (7.2-11.7); MONO # 0.6 K/uL (0.0-0.8); MONO % 7.7 % (0.0-10.0); NEUT # 6.3 K/uL (1.8-7.0); NEUT % 78.2 % (50.0-75.0); RBC 3.56 Mil/uL (4.40-5.90); RED CELL DISTRIBUTION WIDTH 13.1 % (11.5-14.5); WHITE BLOOD COUNT 8.1 K/uL (4.8-10.8)
[2017-08-24 08:52] LABS: HEMOGLOBIN 11.6 g/dL (12.0-18.0)
[2017-08-24] MEDS: Efavirenz/Emtricitabine/Teno 1 TAB PO SCH (09:16)
--- NOTE | 2017-08-24 09:55 | MRI ---
PROCEDURE: Magnetic Resonance Cholangiopancreatography HISTORY: r/o CBD stone COMPARISON: None available. TECHNIQUE: Multiplanar, multisequence MR images of the abdomen were obtained, including heavily T2 weighted MRCP images of the biliary system. Rotating maximum intensity projection images of the biliary system were generated. FINDINGS: MRCP: The common bile duct is of a normal caliber. No definite evidence of choledocholithiasis. No intrahepatic biliary ductal dilatation. LIVER: Unremarkable. GALLBLADDER: The gallbladder is distended with mild pericholecystic fluid collection and borderline mural thickening. Cholelithiasis identified within the lumen of the gallbladder. Cholecystitis is difficult to completely exclude however no dilatation of the common bile duct is appreciated and normal there is no definite pattern of choledocholithiasis either. Further clinical correlation is recommended. SPLEEN: Unremarkable. PANCREAS: Unremarkable. ADRENALS: Unremarkable. KIDNEYS: Unremarkable. AORTA: No aneurysm. ASCITES: None. OTHER FINDINGS: None. IMPRESSION: Normal caliber intra and extrahepatic bile ducts. No definite choledocholithiasis appreciable. Mild to mildly suspicious gallbladder findings as discussed above. Consider potential cholecystitis clinically. Nuclear HIDA scan may be helpful for additional characterization.
[2017-08-24 11:50] LABS: % CD4 (T HELPER CELL) 19 Percent (30-61); % CD8 (SUPPRESSOR T CELL) 38 Percent (12-42); ABSOLUTE CD3 CELLS 559 Cells/mcL (840-3060); ABSOLUTE CD4 CELLS 184 Cells/mcL (490-1740); ABSOLUTE CD8 CELLS 367 Cells/mcL (180-1170); ABSOLUTE LYMPHOCYTES 965 Cells/mcL (850-3900)
[2017-08-25] MEDS: Sodium Chloride 0.9% 1,000 ML IV SCH ×2 (02:15→03:10)
[2017-08-25] MEDS: Piperacill/Tazo 3.375gm in Dex 3.375 GM/50 ML BAG IVPB SCH ×5 (03:10→22:15)
[2017-08-25] MEDS: levETIRAcetam 500 MG in Sodium Chloride 0.9% 100 ML IVPB SCH (06:53)
--- NOTE | 2017-08-25 06:59 | CP.PCM.PN ---
<Mandi Sylvester V - Last Filed: 08/25/17 14:10> Objective - Vital Signs/Intake and Output Vital Signs (last 24 hours): Temp Pulse Resp BP Pulse Ox 98.5 F 65 11 L 120/78 96 08/25/17 12:10 08/25/17 12:40 08/25/17 12:40 08/25/17 12:40 08/25/17 12:40 Intake and Output: 08/25/17 08/25/17 06:59 18:59 Intake Total 600 Output Total 5 Balance -5 600 - Medications Medications: Current Medications Efavirenz/Emtricitabine/Tenofovir (Atripla 600 Mg-200 Mg-300 Mg) 1 tab PO DAILY [facility] PRN Reason: Protocol Last Admin: 08/25/17 13:41 Dose: 1 tab Piperacillin Sod/Tazobactam Sod (Zosyn 3.375 Gm Iv Premix) 3.375 gm in 50 mls @ 100 mls/hr IVPB Q6H [facility] PRN Reason: Protocol Last Admin: 08/25/17 04:51 Dose: 100 mls/hr Levetiracetam (Keppra) 500 mg PO BID [facility] Ondansetron HCl (Zofran Inj) 4 mg IVP Q6H PRN PRN Reason: Nausea/Vomiting Oxycodone/Acetaminophen (Percocet 5/325 Mg Tab) 2 tab PO Q4H PRN PRN Reason: pain Stop: 08/26/17 13:34 Pantoprazole Sodium (Protonix Ec Tab) 40 mg PO DAILY [facility] Last Admin: 08/25/17 13:42 Dose: 40 mg Potassium Chloride (K-Dur 20 Meq Er Tab) 20 meq PO ONCE ONE Stop: 08/25/17 15:01 Fluticasone/Salmeterol (Advair Diskus 500/50) 1 puff INH RQ12 [facility] Last Admin: 08/25/17 07:40 Dose: 1 puff - Labs Labs: 08/25/17 08:13 08/25/17 08:13 PT 12.8 SECONDS (9.7-12.2) H 08/22/17 16:04 INR 1.2 08/22/17 16:04 APTT 30 SECONDS (21-34) 08/22/17 16:04 Attending/Attestation - Attestation I have personally seen and examined this patient.: Yes I have fully participated in the care of the patient.: Yes I have reviewed all pertinent clinical information, including history, physical exam and plan: Yes Notes (Text): Patient seen, examined, and case discussed with day-time resident. Patient seen this afternoon. Patient denies fever, denies chest pain, denies shortness of breathe, denies cough, reports abdominal pain is controlled, denies nausea, denies vomitting. Patient reports he has a bowel movement. Patient completed ERCP with sphincterctomy this morning. Patient had Bin drain removed by surgeon this afternoon. Will resume diet with liquid diet and advanced to regular diet in the morning. Patient's medications switched to PO. Per request of patient's bloodwork and information in regards to hospitalization to be released to his PMD: Dr. Lori Ambriz. Assessment/plan (1) Cholecystitis Cholelithasis Assessment and Plan: * General surgery- Dr. Maldonado on board-->ED contacted on admission * Medicine resident has spoken with him; tenative planning for surgery scheduled for 08/23/17 at 1pm * GI consulted, Dr. Simeon on board * MRCP pending to eval for CBD stone, possible ERCP tomorrow, start Abx, check direct bilirubin, obtain cultures * Abd/pelv CT (08/22/17): Pattern suspicious for cholecystitis with choledocholithiasis in question at the proximal CBD. Consider follow-up ultrasonography or MRCP; Hepatic steatosis; No additional pertinent abdominal or pelvic findings. * Abd US (08/22/17): Cholelithiasis and sludge in the gallbladder with associated gallbladder wall thickening measuring up to 5 millimeters. Associated gallbladder wall edema and pericholecystic fluid. These findings may represent a cholecystitis; Correlation with nuclear medicine study may be helpful if clinically indicated; Increased echogenicity of the hepatic parenchymal cortex suggestive for fatty infiltration versus hepatic parenchymal disease; Pancreas not well visualized. * MRCP (08/23/17): normal caliber intra and extrahepatic bile ducts. No definite choledocholithiasis apprecaible. Mild to mild suspicious gallbladder findings as discussed above. * ERCP +/ EUS (08/25/17) performed. monitor overnight. * Lipase: 88 * Blood cx (08/22/17): no growth after 48 hours X2 * Urine cx (08/22/17): no growth Preop: * EKG: nsr@63bpm * CXR: no active disease * Coags: 1.2 * NPO * Chemical anticoag held for procedure Medications/management: * Zosyn 3.375g IV Q6h (active 08/22/17) * Morphine 2mg IV Q4 prn for pain * Zofran 4mg IV Q6h prn for n/v Status: Acute (2) Chest pain (resolved) Assessment and Plan: * upgraded to telemetry given complaint of chest pain; will check a1c, tsh, lipid panel, probnp * EKG: nrs@63bpm; CHANCE X3 negative * TSH/Free T4: f/u results * Lipid panel: T, T, LDL: 60, HDL: 64 * A1c: 5.3 Status: Acute (3) Transaminitis Assessment and Plan: * GI consulted, Dr. Simeon - help appreciated * Likely secondary to Cholecytitis with cholelithasis * Abd US (08/22/17): Cholelithiasis and sludge in the gallbladder with associated gallbladder wall thickening measuring up to 5 millimeters. Associated gallbladder wall edema and pericholecystic fluid. These findings may represent a cholecystitis; Correlation with nuclear medicine study may be helpful if clinically indicated; Increased echogenicity of the hepatic parenchymal cortex suggestive for fatty infiltration versus hepatic parenchymal disease; Pancreas not well visualized. * AST/ALT: 651/445 at admission * Downtrending * ERCP +/ EUS (08/25/17) performed. monitor overnight. * Hepatitis panel:negative * Continue to monitor Status: Acute (4) HLD (hyperlipidemia) Assessment and Plan: * Home medication: Lipitor 40mg PO HS * Held in light of transaminitis * Lipid panel: T, T, LDL: 60, HDL: 64 Status: Acute (5) History of HIV infection Assessment and Plan: * Continue home medication: Atripla 1100mg PO daily * Patient f/u CD4 count and viral load [id number]; Patient was scheduled for follow up today. * Last CD4 count 938, viral load undetected 3 months ago. * Patient signed release to fax over blood work to his PMD who is not in the office Status: Acute (6) Hx of arteriovenous malformation (AVM) Assessment and Plan: * Neurology consulted, Dr. Jo. (Patient's outpatient neurologist) * Hx of AVM surgery in 2004 * Uses [employer] for assistance during ambulation (vibratory device he wears over left lower extremity) * Home medication: Keppra 500mg PO BID * Seizure precautions Status: Chronic (7) Asthma Assessment and Plan: * Continue home medication: Advair 500/50 1puff INH daily * Duonebs PRN shortness of breathe * Chest xray (08/22/17): no interval acute cardiopulmonary disease appreciable. Postop changes again seen mid right lung. Status: Chronic (8) Prophylactic measure Assessment and Plan: * DVT: SCDs * GI: Protonix 40mg IV daily * Seizure precautions * Advanced diet to liquid Status: Acute <Maru Baltazar - Last Filed: 08/25/17 14:45> Subjective - Date & Time of Evaluation Date of Evaluation: 08/25/17 Time of Evaluation: 07:00 - Subjective Subjective: Medicine Progress Note: Patient was seen and examined at bedside in the AM. Patient states he is feeling well as he has been walking the floors. Patient states he has slight tenderness to his epigastric area to palpation. Patient states he has been passing flatus but has not had a bowel movement yet. Patient denies fever, chills, nausea, vomiting, chest pain or shortness of breath. Objective - Vital Signs/Intake and Output Vital Signs (last 24 hours): Temp Pulse Resp BP Pulse Ox 98.5 F 76 20 129/88 94 L 08/25/17 04:15 08/25/17 04:15 08/25/17 04:15 08/25/17 04:15 08/25/17 04:15 Intake and Output: 08/24/17 08/25/17 18:59 06:59 Intake Total 800 Output Total 40 5 Balance 760 -5 - Medications Medications: Current Medications Efavirenz/Emtricitabine/Tenofovir (Atripla 600 Mg-200 Mg-300 Mg) 1 tab PO DAILY [facility] PRN Reason: Protocol Last Admin: 08/24/17 09:16 Dose: 1 tab Sodium Chloride (Sodium Chloride 0.9%) 1,000 mls @ 100 mls/hr IV .Q10H [facility] Last Admin: 08/25/17 03:10 Dose: 100 mls/hr Piperacillin Sod/Tazobactam Sod (Zosyn 3.375 Gm Iv Premix) 3.375 gm in 50 mls @ 100 mls/hr IVPB Q6H [facility] PRN Reason: Protocol Last Admin: 08/25/17 04:51 Dose: 100 mls/hr Levetiracetam 500 mg/ Sodium (Chloride) 105 mls @ 420 mls/hr IVPB Q12H [facility] Last Admin: 08/25/17 06:53 Dose: 420 mls/hr Morphine Sulfate (Morphine) 2 mg IVP Q4H PRN PRN Reason: Pain, moderate (4-7) Last Admin: 08/25/17 05:11 Dose: 2 mg Ondansetron HCl (Zofran Inj) 4 mg IVP Q6H PRN PRN Reason: Nausea/Vomiting Oxycodone/Acetaminophen (Percocet 5/325 Mg Tab) 2 tab PO Q4H PRN PRN Reason: pain Stop: 08/26/17 13:34 Pantoprazole Sodium (Protonix Ec Tab) 40 mg PO DAILY [facility] Fluticasone/Salmeterol (Advair Diskus 500/50) 1 puff INH RQ12 [facility] Last Admin: 08/24/17 19:53 Dose: 1 puff - Labs Labs: 08/24/17 08:00 08/24/17 08:00 PT 12.8 SECONDS (9.7-12.2) H 08/22/17 16:04 INR 1.2 08/22/17 16:04 APTT 30 SECONDS (21-34) 08/22/17 16:04 - Constitutional Appears: No Acute Distress - Head Exam Head Exam: ATRAUMATIC, NORMAL INSPECTION - Eye Exam Eye Exam: EOMI, Normal appearance Pupil Exam: NORMAL ACCOMODATION - ENT Exam ENT Exam: Mucous Membranes Moist - Respiratory Exam Respiratory Exam: Clear to Ausculation Bilateral, NORMAL BREATHING PATTERN - Cardiovascular Exam Cardiovascular Exam: REGULAR RHYTHM, +S1, +S2 - GI/Abdominal Exam GI & Abdominal Exam: Soft, Tenderness (minimal tenderness to epigastric area ), Normal Bowel Sounds Additional comments: Drain - sanguineous serous fluid - Extremities Exam Extremities Exam: Normal Capillary Refill. absent: Pedal Edema, Tenderness Additional comments: Left lower toes contracted upwards - Neurological Exam Neurological Exam: Alert, Awake, CN II-XII Intact, Oriented x3 Neuro motor strength exam: Left Upper Extremity: 5, Right Upper Extremity: 5, Left Lower Extremity: 4, Right Lower Extremity: 5 - Psychiatric Exam Psychiatric exam: Normal Mood - Skin Skin Exam: Dry, Intact, Warm Assessment and Plan - Assessment and Plan (Free Text) Assessment: (1) Cholecystitis Assessment and Plan: s/p cholecystectomy on 08/23/17 General surgery- Dr. Maldonado GI consulted, Dr. Simeon - MRCP: no CBD stone; - ERCP: Normal Caliber intra and extrahepatic bile ducts. No definite choledocholithiasis appreciable. Mild to mildy suspicious gallbladder findings discussed above. Abd/pelv CT: Pattern suspicious for cholecystitis with choledocholithiasis in question at the proximal CBD. Consider follow-up ultrasonography or MRCP; Hepatic steatosis; No additional pertinent abdominal or pelvic findings. Abd US: Cholelithiasis and sludge in the gallbladder with associated gallbladder wall thickening measuring up to 5 millimeters. Associated gallbladder wall edema and pericholecystic fluid. These findings may represent a cholecystitis; Correlation with nuclear medicine study may be helpful if clinically indicated; Increased echogenicity of the hepatic parenchymal cortex suggestive for fatty infiltration versus hepatic parenchymal disease; Pancreas not well visualized. Lipase: 88 TBili: 2.8H AST/ALT: 651/445 Blood cx: negative x24h Urine cx: f/u results Preop: - EKG: nsr@63bpm - CXR: no active disease - Coags: PT12.4, INR 1.2, PTT 30 - Chemical anticoag held for procedure Medications/management: - Zosyn 3.375g IV Q8h (active 08/22/17) - Percocet 2tabs Q4 prn for pain - Zofran 4mg IV Q6h prn for n/v (2) Chest pain Assessment and Plan: Admitted to telemetry, continue to monitor EKG: nrs@63bpm Troponin x3: negative TSH/Free T4: 1.16/0.93 Lipid panel: TG 53, Chol 156, LDL 60, HDL 64 A1c: 5.3 (3) Transaminitis Assessment and Plan: Improving Likely secondary to Cholecytitis with choledocholithiasis in proximal CBD. AST/ALT: 651/445 at admission Hepatitis panel: negative GI consulted, Dr. Simeon - help appreciated Continue to monitor (4) HLD (hyperlipidemia) Assessment and Plan: Home medication: Lipitor 40mg PO HS (hold- due to transaminitis) Lipid panel: TG 53, Chol 156, LDL 60, HDL 64 (5) History of HIV infection Assessment and Plan: Continue home medication: Atripla 1100mg PO daily Patient f/u CD4 count and viral load [id number]; Patient was scheduled for follow up today. Last CD4 count 938, viral load undetected 3 months ago. Patient will follow up with infectious disease physician who is also patient's PMD Dr. Lori Ambriz as an out patient (6) Hx of arteriovenous malformation (AVM) Assessment and Plan: Hx of AVM surgery in 2004 Uses [employer] for assistance during ambulation Neurology consulted, Dr. Jo. (Patient's outpatient neurologist) Continue home medication: Keppra 500mg PO BID * Keppra 500mg IV BID (discontinued on 08/24 to restart PO medication) Seizure precautions (7) Asthma Assessment and Plan: Continue home medication: Advair 500/50 1puff INH daily (8) Prophylactic measure Assessment and Plan: DVT: SCDs, no chemical anticoagulation-preop GI: Protonix 40mg PO daily Seizure precautions Heart healthy diet Incentive spirometer Disposition: Patient s/p cholecystectomy with Dr. Maldonado. Drain removed . Patient will be advanced to a regular diet on 08/26/17 morning.
[2017-08-25] MEDS: Fluticasone-Salmeterol 500-50mcg Diskus INH SCH ×2 (07:40→20:04)
[2017-08-25 08:24] LABS: BASO % 0.2 % (0.0-2.0); EOS # 0.1 K/uL (0.0-0.7); EOS % 1.3 % (0.0-4.0); HEMOGLOBIN 11.1 g/dL (12.0-18.0); LYMPH # 1.4 K/uL (1.0-4.3); LYMPH % 18.8 % (20.0-40.0); MEAN CORPUSCULAR HEMOGLOBIN 33.4 pg (27.0-31.0); MEAN CORPUSCULAR HGB CONC 35.5 g/dL (33.0-37.0); MEAN PLATELET VOLUME 8.3 fL (7.2-11.7); MONO # 0.7 K/uL (0.0-0.8); MONO % 9.7 % (0.0-10.0); NEUT # 5.3 K/uL (1.8-7.0); RBC 3.31 Mil/uL (4.40-5.90); RED CELL DISTRIBUTION WIDTH 13.1 % (11.5-14.5); WHITE BLOOD COUNT 7.5 K/uL (4.8-10.8)
[2017-08-25 08:39] LABS: ALBUMIN 3.2 g/dL (3.5-5.0); BLOOD UREA NITROGEN 7 mg/dL (9-20); GFR AFRICAN-AMERICAN > 60; GFR NON-AFRICAN AMERICAN > 60
[2017-08-25 08:40] LABS: ALB/GLOB RATIO 0.8 (1.0-2.1); ALT/SGPT 136 U/L (21-72); AST/SGOT 79 U/L (17-59)
[2017-08-25] MEDS: Efavirenz/Emtricitabine/Teno 1 TAB PO SCH ×2 (10:45→13:41)
[2017-08-25] MEDS: Pantoprazole 40 mg EC Tab PO SCH ×2 (10:49→13:42)
[2017-08-25] MEDS ORDERED: Rocuronium 10 mg/ml (5 ml) ONE (11:14)
[2017-08-25] MEDS ORDERED: Succinylcholine Chloride 20 mg/ml Syr (5 ml) IV ONE (11:14)
[2017-08-25] MEDS ORDERED: Midazolam 2 MG/2 ML VIAL ONE (11:14)
[2017-08-25] MEDS ORDERED: Indomethacin 50 MG Suppository PR ONE (11:14)
[2017-08-25] MEDS ORDERED: Propofol 10 mg/ml Inj (20 ML) ONE (11:14)
[2017-08-25] MEDS ORDERED: Iohexol 240 (50 ml) ONE (11:14)
[2017-08-25] MEDS ORDERED: Glucagon Recombinant 1 mg Inj ONE (11:15)
[2017-08-25] MEDS ORDERED: Neostigmine Methylsulfate 3mg/3ml Syringe IV ONE (11:56)
[2017-08-25] MEDS ORDERED: Potassium Chloride 20 mEq ER Tab PO ONE (15:00)
[2017-08-25 17:28] VITALS: RESP 20
[2017-08-26 00:44] VITALS: O2SAT 96
[2017-08-26] MEDS: Piperacill/Tazo 3.375gm in Dex 3.375 GM/50 ML BAG IVPB SCH (05:23)
[2017-08-26 07:46] VITALS: BP 125/77; PULSE 59; TEMP 97.6
[2017-08-26 07:46] LABS: BASO % 0.2 % (0.0-2.0); EOS # 0.3 K/uL (0.0-0.7); EOS % 4.5 % (0.0-4.0); HEMOGLOBIN 10.6 g/dL (12.0-18.0); LYMPH # 1.4 K/uL (1.0-4.3); LYMPH % 24.3 % (20.0-40.0); MEAN CORPUSCULAR HEMOGLOBIN 32.7 pg (27.0-31.0); MEAN CORPUSCULAR HGB CONC 34.8 g/dL (33.0-37.0); MEAN PLATELET VOLUME 7.8 fL (7.2-11.7); MONO # 0.7 K/uL (0.0-0.8); MONO % 12.3 % (0.0-10.0); NEUT # 3.4 K/uL (1.8-7.0); NEUT % 58.7 % (50.0-75.0); RBC 3.23 Mil/uL (4.40-5.90); RED CELL DISTRIBUTION WIDTH 12.8 % (11.5-14.5); WHITE BLOOD COUNT 5.8 K/uL (4.8-10.8)
[2017-08-26 08:08] LABS: ALB/GLOB RATIO 0.8 (1.0-2.1); ALT/SGPT 98 U/L (21-72); AST/SGOT 51 U/L (17-59); BLOOD UREA NITROGEN 7 mg/dL (9-20); CALCIUM 8.1 mg/dl (8.6-10.4); GFR AFRICAN-AMERICAN > 60; GFR NON-AFRICAN AMERICAN > 60
[2017-08-26] MEDS: Fluticasone-Salmeterol 500-50mcg Diskus INH SCH (08:21)
--- NOTE | 2017-08-26 09:01 | CP.PCM.PN ---
Subjective - Date & Time of Evaluation Date of Evaluation: 08/26/17 Time of Evaluation: 08:58 - Subjective Subjective: Patient seen and examined, resting in bed comfortably. No acute events overnight. He endorses mild abdominal tenderness at surgical site along with constipation but otherwise denies nausea, vomiting, fever/chills. Tolerating PO diet without difficulty. Review of vitals from today are normal. 12 point review of systems performed, negative aside from mentioned above. Objective - Vital Signs/Intake and Output Vital Signs (last 24 hours): Temp Pulse Resp BP Pulse Ox 97.6 F 59 L 20 125/77 96 08/26/17 07:45 08/26/17 07:45 08/26/17 07:45 08/26/17 07:45 08/26/17 07:45 - Medications Medications: Current Medications Efavirenz/Emtricitabine/Tenofovir (Atripla 600 Mg-200 Mg-300 Mg) 1 tab PO DAILY [facility] PRN Reason: Protocol Last Admin: 08/25/17 13:41 Dose: 1 tab Piperacillin Sod/Tazobactam Sod (Zosyn 3.375 Gm Iv Premix) 3.375 gm in 50 mls @ 100 mls/hr IVPB Q6H [facility] PRN Reason: Protocol Last Admin: 08/26/17 05:23 Dose: 100 mls/hr Levetiracetam (Keppra) 500 mg PO BID [facility] Last Admin: 08/25/17 18:03 Dose: 500 mg Ondansetron HCl (Zofran Inj) 4 mg IVP Q6H PRN PRN Reason: Nausea/Vomiting Oxycodone/Acetaminophen (Percocet 5/325 Mg Tab) 2 tab PO Q4H PRN PRN Reason: pain Stop: 08/26/17 13:34 Pantoprazole Sodium (Protonix Ec Tab) 40 mg PO DAILY [facility] Last Admin: 08/25/17 13:42 Dose: 40 mg Polyethylene Glycol (Miralax) 17 gm PO DAILY [facility] Fluticasone/Salmeterol (Advair Diskus 500/50) 1 puff INH RQ12 [facility] Last Admin: 08/26/17 08:21 Dose: 1 puff - Labs Labs: 08/26/17 07:34 08/26/17 07:34 PT 12.8 SECONDS (9.7-12.2) H 08/22/17 16:04 INR 1.2 08/22/17 16:04 APTT 30 SECONDS (21-34) 08/22/17 16:04 - Constitutional Appears: Non-toxic, No Acute Distress - Eye Exam Eye Exam: EOMI, Normal appearance - ENT Exam ENT Exam: Mucous Membranes Moist - Respiratory Exam Respiratory Exam: Clear to Ausculation Bilateral - GI/Abdominal Exam GI & Abdominal Exam: Soft, Tenderness, Normal Bowel Sounds Additional comments: mild tenderness at surgical site region of ecchymosis - Extremities Exam Extremities Exam: Normal Inspection - Skin Skin Exam: Dry, Intact, Normal Color, Warm Assessment and Plan - Assessment and Plan (Free Text) Assessment: HIV Abdominal pain, acute cholecystitis s/p cholecystectomy Transaminitis - resolving Choledocholithiasis s/p ERCP with sphincterotomy and stone extraction Plan: - Diet as tolerated - Continue with antibiotic therapy - LFTs trending down, continue to monitor - Follow up surgical recommendations - No further planned GI intervention, will sign off case. Please reconsult as necessary, thank you.
[2017-08-26] MEDS ORDERED: Potassium Chloride 20 mEq ER Tab PO ONE (10:00)
[2017-08-26] MEDS ORDERED: POLYETHYLENE GLYCOL 3350 17 GM/Dose PACKET PO SCH (10:00)
--- NOTE | 2017-08-26 10:21 | CP.PCM.PN ---
Subjective - Date & Time of Evaluation Date of Evaluation: 08/26/17 Time of Evaluation: 10:10 - Subjective Subjective: Medical Attending Note Patient seen and examined this morning. Patient denies fever, denies chills, denies chest pain, denies palpitations, reports abdominal pain, reports he has not gone to the bathroom since the surgery, reports flatus. Patient reports he cannot take percocet reports his body does not react well to it. I have advised him I can't give him Tylenol or Motrin yet. Objective - Vital Signs/Intake and Output Vital Signs (last 24 hours): Temp Pulse Resp BP Pulse Ox 97.6 F 59 L 20 125/77 96 08/26/17 07:45 08/26/17 07:45 08/26/17 07:45 08/26/17 07:45 08/26/17 07:45 - Medications Medications: Current Medications Efavirenz/Emtricitabine/Tenofovir (Atripla 600 Mg-200 Mg-300 Mg) 1 tab PO DAILY [facility] PRN Reason: Protocol Last Admin: 08/25/17 13:41 Dose: 1 tab Lactulose (Enulose) 20 gm PO ONCE ONE Stop: 08/26/17 10:16 Levetiracetam (Keppra) 500 mg PO BID [facility] Last Admin: 08/25/17 18:03 Dose: 500 mg Ondansetron HCl (Zofran Inj) 4 mg IVP Q6H PRN PRN Reason: Nausea/Vomiting Oxycodone/Acetaminophen (Percocet 5/325 Mg Tab) 2 tab PO Q4H PRN PRN Reason: pain Stop: 08/26/17 13:34 Pantoprazole Sodium (Protonix Ec Tab) 40 mg PO DAILY [facility] Last Admin: 08/25/17 13:42 Dose: 40 mg Polyethylene Glycol (Miralax) 17 gm PO DAILY [facility] Fluticasone/Salmeterol (Advair Diskus 500/50) 1 puff INH RQ12 [facility] Last Admin: 08/26/17 08:21 Dose: 1 puff Simethicone (Mylicon Liq) 40 mg PO QID [facility] - Labs Labs: 08/26/17 07:34 08/26/17 07:34 PT 12.8 SECONDS (9.7-12.2) H 08/22/17 16:04 INR 1.2 08/22/17 16:04 APTT 30 SECONDS (21-34) 08/22/17 16:04 - Constitutional Appears: Non-toxic, No Acute Distress - Head Exam Head Exam: NORMAL INSPECTION - Eye Exam Eye Exam: EOMI - ENT Exam ENT Exam: Mucous Membranes Moist - Respiratory Exam Respiratory Exam: Clear to Ausculation Bilateral, NORMAL BREATHING PATTERN. absent: Rales, Rhonchi - Cardiovascular Exam Cardiovascular Exam: REGULAR RHYTHM, +S1, +S2 - GI/Abdominal Exam GI & Abdominal Exam: Distended, Soft, Normal Bowel Sounds. absent: Firm, Guarding, Rigid, Tenderness, Rebound Additional comments: mild ecchymoses over epigastric healed surgical incision over the right upper quadrant - Extremities Exam Extremities Exam: absent: Pedal Edema, Tenderness - Neurological Exam Neurological Exam: Alert, Awake, Oriented x3 Neuro motor strength exam: Left Upper Extremity: 5, Right Upper Extremity: 5, Left Lower Extremity: 5, Right Lower Extremity: 5 - Psychiatric Exam Psychiatric exam: Normal Affect, Normal Mood - Skin Skin Exam: Dry, Normal Color, Warm Assessment and Plan (1) Cholecystitis with cholelithiasis Status: Acute (2) Cholecystitis Status: Acute (3) Asthma Status: Acute (4) HLD (hyperlipidemia) Status: Acute (5) History of HIV infection Status: Acute (6) Hx of arteriovenous malformation (AVM) Status: Acute (7) Prophylactic measure Status: Acute Attending/Attestation - Attestation I have personally seen and examined this patient.: Yes I have fully participated in the care of the patient.: Yes I have reviewed all pertinent clinical information, including history, physical exam and plan: Yes Notes (Text): Patient seen, examined, and case discussed with day-time resident. Patient denies fever, denies chest pain, denies shortness of breathe, denies cough, reports abdominal pain is controlled, denies nausea, denies vomitting. Patient completed ERCP with sphincterctomyyesterday. Seen by GI who have signed off. Patient had Bin drain removed by surgeon yesterday. Tolerating diet. Reports he had not a bowel movement yesterday. Reports he has had flatus. Start supportive therapy for abdominal discomfort and constipation Plan for discharge later today. Will need copy of HIV blood work to bring to his PMD on follow-up. Assessment/plan (1) Cholecystitis-->chronic Cholelithasis--->chronic Assessment and Plan: * General surgery- Dr. Maldonado on board-->ED contacted on admission * Medicine resident has spoken with him; tenative planning for surgery scheduled for 08/23/17 at 1pm * GI consulted, Dr. Simeon on board * MRCP pending to eval for CBD stone, possible ERCP tomorrow, start Abx, check direct bilirubin, obtain cultures * Abd/pelv CT (08/22/17): Pattern suspicious for cholecystitis with choledocholithiasis in question at the proximal CBD. Consider follow-up ultrasonography or MRCP; Hepatic steatosis; No additional pertinent abdominal or pelvic findings. * Abd US (08/22/17): Cholelithiasis and sludge in the gallbladder with associated gallbladder wall thickening measuring up to 5 millimeters. Associated gallbladder wall edema and pericholecystic fluid. These findings may represent a cholecystitis; Correlation with nuclear medicine study may be helpful if clinically indicated; Increased echogenicity of the hepatic parenchymal cortex suggestive for fatty infiltration versus hepatic parenchymal disease; Pancreas not well visualized. * MRCP (08/23/17): normal caliber intra and extrahepatic bile ducts. No definite choledocholithiasis apprecaible. Mild to mild suspicious gallbladder findings as discussed above. * ERCP +/ EUS (08/25/17) performed. monitor overnight. * Lipase: 88 * Blood cx (08/22/17): no growth after 3 days X2 * Urine cx (08/22/17): no growth Preop: * EKG: nsr@63bpm * CXR: no active disease * Coags: 1.2 * NPO * Chemical anticoag held for procedure Medications/management: * Zosyn 3.375g IV Q6h (active 08/22/17) * Morphine 2mg IV Q4 prn for pain * Zofran 4mg IV Q6h prn for n/v Status: Acute (2) Chest pain (resolved) Assessment and Plan: * upgraded to telemetry given complaint of chest pain; will check a1c, tsh, lipid panel, probnp * EKG: nrs@63bpm; CHANCE X3 negative * TSH/Free T4: f/u results * Lipid panel: T, T, LDL: 60, HDL: 64 * A1c: 5.3 Status: Acute (3) Transaminitis-->improving Assessment and Plan: * GI consulted, Dr. Simeon - help appreciated * Signed off * Likely secondary to Cholecytitis with cholelithasis * Abd US (08/22/17): Cholelithiasis and sludge in the gallbladder with associated gallbladder wall thickening measuring up to 5 millimeters. Associated gallbladder wall edema and pericholecystic fluid. These findings may represent a cholecystitis; Correlation with nuclear medicine study may be helpful if clinically indicated; Increased echogenicity of the hepatic parenchymal cortex suggestive for fatty infiltration versus hepatic parenchymal disease; Pancreas not well visualized. * AST/ALT: 651/445 at admission * Downtrending * ERCP +/ EUS (08/25/17) performed. monitor overnight. * Hepatitis panel:negative * Continue to monitor Status: Acute (4) HLD (hyperlipidemia)-->chronic Assessment and Plan: * Home medication: Lipitor 40mg PO HS * Held in light of transaminitis * Lipid panel: T, T, LDL: 60, HDL: 64 Status: Chronic (5) History of HIV infection-->chronic Assessment and Plan: * Continue home medication: Atripla 1100mg PO daily * Patient f/u CD4 count and viral load [id number]; Patient was scheduled for follow up today. * Last CD4 count 938, viral load undetected 3 months ago. * Patient signed release to fax over blood work to his PMD who is not in the office Status: Acute (6) Hx of arteriovenous malformation (AVM)-->chronic Assessment and Plan: * Neurology consulted, Dr. Jo. (Patient's outpatient neurologist) * Hx of AVM surgery in 2004 * Uses [employer] for assistance during ambulation (vibratory device he wears over left lower extremity) * Home medication: Keppra 500mg PO BID * Seizure precautions Status: Chronic (7) Asthma-->chronic Assessment and Plan: * Continue home medication: Advair 500/50 1puff INH daily * Duonebs PRN shortness of breathe * Chest xray (08/22/17): no interval acute cardiopulmonary disease appreciable. Postop changes again seen mid right lung. Status: Chronic (8) Prophylactic measure Assessment and Plan: * DVT: SCDs * GI: Protonix 40mg IV daily * Seizure precautions * Advanced diet as tolerate Status: Acute
[2017-08-26] MEDS: Efavirenz/Emtricitabine/Teno 1 TAB PO SCH (10:32)
[2017-08-26] MEDS: Pantoprazole 40 mg EC Tab PO SCH (10:32)
[2017-08-26] MEDS: Simethicone 80 mg Chewtab PO SCH ×2 (10:33→13:27)
[2017-08-26] MEDS ORDERED: Piperacill/Tazo 3.375gm in Dex 3.375 GM/50 ML BAG IVPB SCH (11:00)
--- NOTE | 2017-08-26 17:43 | CP.PCM.DIS ---
<Pratibha Edwards DO - Last Filed: 08/26/17 18:32> Provider - Provider Date of Admission: 08/22/17 14:07 Attending physician: Mandi Sylvester DO Consults: Dr. Joel Simeon Time Spent in preparation of Discharge (in minutes): 40 Diagnosis - Discharge Diagnosis (1) Cholecystitis Status: Acute Comment: Patient status post cholecystectomy with Dr. Maldonado on 08/23/17. Patient had ERCP with sphincterotomy on 08/25/17 with GI. (2) HLD (hyperlipidemia) Status: Acute Comment: Patient's lipitor held due to transaminitis. Patient to follow up with PMD and resume medication at PMD's discretion. (3) History of HIV infection Status: Acute Comment: Patient to continue Atripla. CD4 count checked while inpatient. Patient to follow up with ID physician on discharge. (4) Hx of arteriovenous malformation (AVM) Status: Acute Comment: Neurology consulted, Dr. Jo. (Patient's outpatient neurologist). Hx of AVM surgery in 2004. Uses [employer] for assistance during ambulation ( vibratory device he wears over left lower extremity). Home medication Keppra 500mg PO BID continued while inpatient with seizure precautions Hospital Course - Lab Results Lab Results: Micro Results 08/22/17 14:14 Blood Blood Culture - Preliminary NO GROWTH AFTER 4 DAYS 08/22/17 14:14 Blood Blood Culture - Preliminary NO GROWTH AFTER 4 DAYS 08/22/17 16:16 Urine Urine Culture - Final No Growth (<1,000 CFU/ML) Most Recent Lab Values WBC 5.8 K/uL (4.8-10.8) 08/26/17 07:34 RBC 3.23 Mil/uL (4.40-5.90) L 08/26/17 07:34 Hgb 10.6 g/dL (12.0-18.0) L 08/26/17 07:34 Hct 30.4 % (35.0-51.0) L 08/26/17 07:34 MCV 94.0 fL (80.0-94.0) 08/26/17 07:34 MCH 32.7 pg (27.0-31.0) H 08/26/17 07:34 MCHC 34.8 g/dL (33.0-37.0) 08/26/17 07:34 RDW 12.8 % (11.5-14.5) 08/26/17 07:34 Plt Count 259 K/uL (130-400) 08/26/17 07:34 MPV 7.8 fL (7.2-11.7) 08/26/17 07:34 Neut % (Auto) 58.7 % (50.0-75.0) 08/26/17 07:34 Lymph % (Auto) 24.3 % (20.0-40.0) 08/26/17 07:34 [place] % (Auto) 12.3 % (0.0-10.0) H 08/26/17 07:34 Eos % (Auto) 4.5 % (0.0-4.0) H 08/26/17 07:34 Baso % (Auto) 0.2 % (0.0-2.0) 08/26/17 07:34 Neut # (Auto) 3.4 K/uL (1.8-7.0) 08/26/17 07:34 Lymph # (Auto) 1.4 K/uL (1.0-4.3) 08/26/17 07:34 [place] # (Auto) 0.7 K/uL (0.0-0.8) 08/26/17 07:34 Eos # (Auto) 0.3 K/uL (0.0-0.7) 08/26/17 07:34 Baso # (Auto) 0.0 K/uL (0.0-0.2) 08/26/17 07:34 Neutrophils % (Manual) 79 % (50-75) H 08/23/17 06:51 Band Neutrophils % 9 % (0-2) H 08/23/17 06:51 Lymphocytes % (Manual) 6 % (20-40) L 08/23/17 06:51 Monocytes % (Manual) 6 % (0-10) 08/23/17 06:51 Platelet Estimate Normal (NORMAL) 08/23/17 06:51 RBC Morphology Normal 08/23/17 06:51 PT 12.8 SECONDS (9.7-12.2) H 08/22/17 16:04 INR 1.2 08/22/17 16:04 APTT 30 SECONDS (21-34) 08/22/17 16:04 Sodium 140 mmol/L (132-148) 08/26/17 07:34 Potassium 3.5 mmol/L (3.6-5.2) L 08/26/17 07:34 Chloride 105 mmol/L (98-107) 08/26/17 07:34 Carbon Dioxide 27 mmol/L (22-30) 08/26/17 07:34 Anion Gap 11 (10-20) 08/26/17 07:34 BUN 7 mg/dL (9-20) L 08/26/17 07:34 Creatinine 0.7 mg/dL (0.8-1.5) L 08/26/17 07:34 Est GFR ( Amer) > 60 08/26/17 07:34 Est GFR (Non-Af Amer) > 60 08/26/17 07:34 Random Glucose 94 mg/dL (75-110) 08/26/17 07:34 Hemoglobin A1c 5.3 % (4.2-6.5) 08/22/17 16:13 Calcium 8.1 mg/dl (8.6-10.4) L 08/26/17 07:34 Phosphorus 2.4 mg/dL (2.5-4.5) L 08/26/17 07:34 Magnesium 2.1 mg/dL (1.6-2.3) 08/26/17 07:34 Total Bilirubin 1.3 mg/dL (0.2-1.3) 08/26/17 07:34 Direct Bilirubin 3.0 mg/dL (0.0-0.4) H 08/22/17 16:04 AST 51 U/L (17-59) 08/26/17 07:34 ALT 98 U/L (21-72) H D 08/26/17 07:34 Alkaline Phosphatase 120 U/L (38-126) 08/26/17 07:34 Total Creatine Kinase 75 U/L (55-170) 08/22/17 19:29 CK-MB (Mass) 0.22 ng/mL (0.0-3.38) 08/22/17 19:29 Troponin I < 0.0120 ng/mL (0.00-0.120) 08/22/17 19:29 Total Protein 6.9 g/dL (6.3-8.3) 08/26/17 07:34 Albumin 3.0 g/dL (3.5-5.0) L 08/26/17 07:34 Globulin 3.8 gm/dL (2.2-3.9) 08/26/17 07:34 Albumin/Globulin Ratio 0.8 (1.0-2.1) L 08/26/17 07:34 Triglycerides 53 mg/dL (0-149) 08/22/17 16:04 Cholesterol 156 mg/dL (0-199) 08/22/17 16:04 LDL Cholesterol Direct 60 mg/dL (0-129) 08/22/17 16:04 HDL Cholesterol 64 mg/dL (30-70) 08/22/17 16:04 Lipase 88 U/L (23-300) 08/22/17 07:39 Free T4 0.93 ng/dL (0.78-2.19) 08/22/17 16:04 Thyroxine (T4) 6.14 ug/dL (5.5-11.0) 08/22/17 16:04 TSH 3rd Generation 1.16 mIU/L (0.46-4.68) 08/22/17 16:04 Urine Color Mitra (YELLOW) 08/22/17 07:54 Urine Clarity Clear (Clear) 08/22/17 07:54 Urine pH 6.0 (5.0-8.0) 08/22/17 07:54 Ur Specific [place] 1.021 (1.003-1.030) 08/22/17 07:54 Urine Protein 1+ mg/dL (NEGATIVE) H 08/22/17 07:54 Urine Glucose (UA) Normal mg/dL (Normal) 08/22/17 07:54 Urine Ketones Negative mg/dL (NEGATIVE) 08/22/17 07:54 Urine Blood Negative (NEGATIVE) 08/22/17 07:54 Urine Nitrate Negative (NEGATIVE) 08/22/17 07:54 Urine Bilirubin Negative (NEGATIVE) 08/22/17 07:54 Urine Urobilinogen 4.0 mg/dL (0.2-1.0) 08/22/17 07:54 Ur Leukocyte Esterase Neg [place]/uL (Negative) 08/22/17 07:54 Urine WBC (Auto) < 1 /hpf (0-5) 08/22/17 07:54 Urine RBC (Auto) 10 /hpf (0-3) H 08/22/17 07:54 Absolute Lymphs (Flow) 965 Cells/mcL (850-3900) 08/22/17 19:29 % CD3 Cells 58 Percent (57-85) 08/22/17 19:29 Absolute CD3 Count 559 Cells/mcL (840-3060) L 08/22/17 19:29 % CD4 Cells 19 Percent (30-61) L 08/22/17 19:29 Absolute CD4 Count 184 Cells/mcL (490-1740) L 08/22/17 19:29 T-Help/Suppress Ratio 0.50 Ratio (0.86-5.00) L 08/22/17 19:29 % CD8 Cells 38 Percent (12-42) 08/22/17 19:29 Absolute CD8 Count 367 Cells/mcL (180-1170) 08/22/17 19:29 Hepatitis A IgM Ab Negative (NEGATIVE) 08/22/17 16:04 Hep Bs Antigen Negative (NEGATIVE) 08/22/17 16:04 Hep B Core IgM Ab Negative (NEGATIVE) 08/22/17 16:04 Hepatitis C Antibody Negative (NEGATIVE) 08/22/17 16:04 HIV-1 RNA Qnt (RT-PCR) <1.30 not detected (Not Detected) 08/22/17 19:29 - Hospital Course Hospital Course: On Admission: Patient is a 62 year old male with pmh of HIV, HLD, and stroke secondary to AVM surgery, complaining of abdominal pain that began yesterday. Pain started around 4pm yesterday after eating a cheeseburger, fries and chicken nuggets. The pain is described as severe "like a sword", located in the epigastric region and radiates retrosternally and to the right scapula. Patient describes the pain as 100/10. The patient took prilosec with no relief of symptoms. He states the pain worsened around 2am this morning and was associated with diaphoresis, nausea, and vomiting (vomited 6-7times). Patient drove himself to the ER shortly after his symptoms worsened. Patient currently denies dyspnea, palpitations, nausea, vomiting, fevers, leg pain/swelling, diarrhea, constipation, dysuria, and hematuria. During hospitalization: Patient had the following imaging studies: * Abd/pelv CT (6/5/18): Pattern suspicious for cholecystitis with choledocholithiasis in question at the proximal CBD. Consider follow-up ultrasonography or MRCP; Hepatic steatosis; No additional pertinent abdominal or pelvic findings. * Abd US (08/22/17): Cholelithiasis and sludge in the gallbladder with associated gallbladder wall thickening measuring up to 5 millimeters. Associated gallbladder wall edema and pericholecystic fluid. These findings may represent a cholecystitis; Correlation with nuclear medicine study may be helpful if clinically indicated; Increased echogenicity of the hepatic parenchymal cortex suggestive for fatty infiltration versus hepatic parenchymal disease; Pancreas not well visualized. * MRCP (08/23/17): normal caliber intra and extrahepatic bile ducts. No definite choledocholithiasis apprecaible. Mild to mild suspicious gallbladder findings as discussed above. Patient had laparoscopic cholecystectomy with Dr. Maldonado on 08/23/17. Patient had ERCP with sphincterotomy and stone extraction with GI on 08/25/17. Blood cultures were negative during hospitalization. Patient was given zosyn 3.375g IV q6 during hospitalization from 08/22 - 08/26 Patient's CD4 count was checked while inpatient and patient was provided with lab values to bring to ID physician. On Discharge: Patient is stable for discharge home per Dr. Sylvester. Patient is to follow up with PMD/ ID physician within one week of discharge. Patient is being provided with his lab values to give to PMD. Patient is to follow up with surgeon Dr. Maldonado within a week of discharge. Patient is to resume home medications and is being prescriptions for colace, simethicone, and oxycodone 5mg PO #10 (ten) tablets. Patient should return to the ED if symptoms return or reoccur. This was explained to the patient who understands and agrees. Discharge Exam - Head Exam Head Exam: ATRAUMATIC, NORMAL INSPECTION - Eye Exam Eye Exam: EOMI - ENT Exam ENT Exam: Mucous Membranes Moist - Respiratory Exam Respiratory Exam: Clear to PA & Lateral - Cardiovascular Exam Cardiovascular Exam: +S1, +S2 - GI/Abdominal Exam GI & Abdominal Exam: Soft, Tenderness - Extremities Exam Extremities exam: normal inspection - Neurological Exam Neurological exam: Alert - Psychiatric Exam Psychiatric exam: Normal Affect - Skin Skin Exam: Warm Discharge Plan - Discharge Medications Prescriptions: Docusate Sodium [Colace] 100 mg PO BID PRN #30 capsule PRN Reason: Constipation oxyCODONE [oxyCODONE Immediate Release Tab] 5 mg PO Q6H PRN #10 tab PRN Reason: Pain, Severe (8-10) Simethicone [Anti-Gas] 180 mg PO Q6H PRN #30 capsule PRN Reason: gas bloating - Follow Up Plan Condition: GOOD Disposition: HOME/ ROUTINE Instructions: Constipation, Adult (DC), Docusate, Oxycodone, Simethicone, Cholecystitis (DC), Acute Abdominal Pain (DC) Additional Instructions: Patient is stable for discharge home per Dr. Sylvester. Patient is to follow up with PMD/ ID physician within one week of discharge. Patient is being provided with his lab values to give to PMD. Patient is to follow up with surgeon Dr. Maldonado within a week of discharge. Patient is to resume home medications and is being prescriptions for colace, simethicone, and oxycodone 5mg PO #10 (ten) tablets. Patient should return to the ED if symptoms return or reoccur. This was explained to the patient who understands and agrees. Referrals: Jarad Maldonado MD [Staff Provider] - <Mandi Sylvester V - Last Filed: 08/26/17 21:15> Provider - Provider Date of Admission: 08/22/17 14:07 Attending physician: Mandi Sylvester DO Diagnosis - Discharge Diagnosis (1) Cholecystitis with cholelithiasis Status: Acute (2) Cholecystitis Status: Acute (3) Asthma Status: Acute (4) HLD (hyperlipidemia) Status: Acute (5) History of HIV infection Status: Acute (6) Hx of arteriovenous malformation (AVM) Status: Acute (7) Prophylactic measure Status: Acute Hospital Course - Lab Results Lab Results: Micro Results 08/22/17 14:14 Blood Blood Culture - Preliminary NO GROWTH AFTER 4 DAYS 08/22/17 14:14 Blood Blood Culture - Preliminary NO GROWTH AFTER 4 DAYS 08/22/17 16:16 Urine Urine Culture - Final No Growth (<1,000 CFU/ML) Most Recent Lab Values WBC 5.8 K/uL (4.8-10.8) 08/26/17 07:34 RBC 3.23 Mil/uL (4.40-5.90) L 08/26/17 07:34 Hgb 10.6 g/dL (12.0-18.0) L 08/26/17 07:34 Hct 30.4 % (35.0-51.0) L 08/26/17 07:34 MCV 94.0 fL (80.0-94.0) 08/26/17 07:34 MCH 32.7 pg (27.0-31.0) H 08/26/17 07:34 MCHC 34.8 g/dL (33.0-37.0) 08/26/17 07:34 RDW 12.8 % (11.5-14.5) 08/26/17 07:34 Plt Count 259 K/uL (130-400) 08/26/17 07:34 MPV 7.8 fL (7.2-11.7) 08/26/17 07:34 Neut % (Auto) 58.7 % (50.0-75.0) 08/26/17 07:34 Lymph % (Auto) 24.3 % (20.0-40.0) 08/26/17 07:34 [place] % (Auto) 12.3 % (0.0-10.0) H 08/26/17 07:34 Eos % (Auto) 4.5 % (0.0-4.0) H 08/26/17 07:34 Baso % (Auto) 0.2 % (0.0-2.0) 08/26/17 07:34 Neut # (Auto) 3.4 K/uL (1.8-7.0) 08/26/17 07:34 Lymph # (Auto) 1.4 K/uL (1.0-4.3) 08/26/17 07:34 [place] # (Auto) 0.7 K/uL (0.0-0.8) 08/26/17 07:34 Eos # (Auto) 0.3 K/uL (0.0-0.7) 08/26/17 07:34 Baso # (Auto) 0.0 K/uL (0.0-0.2) 08/26/17 07:34 Neutrophils % (Manual) 79 % (50-75) H 08/23/17 06:51 Band Neutrophils % 9 % (0-2) H 08/23/17 06:51 Lymphocytes % (Manual) 6 % (20-40) L 08/23/17 06:51 Monocytes % (Manual) 6 % (0-10) 08/23/17 06:51 Platelet Estimate Normal (NORMAL) 08/23/17 06:51 RBC Morphology Normal 08/23/17 06:51 PT 12.8 SECONDS (9.7-12.2) H 08/22/17 16:04 INR 1.2 08/22/17 16:04 APTT 30 SECONDS (21-34) 08/22/17 16:04 Sodium 140 mmol/L (132-148) 08/26/17 07:34 Potassium 3.5 mmol/L (3.6-5.2) L 08/26/17 07:34 Chloride 105 mmol/L (98-107) 08/26/17 07:34 Carbon Dioxide 27 mmol/L (22-30) 08/26/17 07:34 Anion Gap 11 (10-20) 08/26/17 07:34 BUN 7 mg/dL (9-20) L 08/26/17 07:34 Creatinine 0.7 mg/dL (0.8-1.5) L 08/26/17 07:34 Est GFR ( Amer) > 60 08/26/17 07:34 Est GFR (Non-Af Amer) > 60 08/26/17 07:34 Random Glucose 94 mg/dL (75-110) 08/26/17 07:34 Hemoglobin A1c 5.3 % (4.2-6.5) 08/22/17 16:13 Calcium 8.1 mg/dl (8.6-10.4) L 08/26/17 07:34 Phosphorus 2.4 mg/dL (2.5-4.5) L 08/26/17 07:34 Magnesium 2.1 mg/dL (1.6-2.3) 08/26/17 07:34 Total Bilirubin 1.3 mg/dL (0.2-1.3) 08/26/17 07:34 Direct Bilirubin 3.0 mg/dL (0.0-0.4) H 08/22/17 16:04 AST 51 U/L (17-59) 08/26/17 07:34 ALT 98 U/L (21-72) H D 08/26/17 07:34 Alkaline Phosphatase 120 U/L (38-126) 08/26/17 07:34 Total Creatine Kinase 75 U/L (55-170) 08/22/17 19:29 CK-MB (Mass) 0.22 ng/mL (0.0-3.38) 08/22/17 19:29 Troponin I < 0.0120 ng/mL (0.00-0.120) 08/22/17 19:29 Total Protein 6.9 g/dL (6.3-8.3) 08/26/17 07:34 Albumin 3.0 g/dL (3.5-5.0) L 08/26/17 07:34 Globulin 3.8 gm/dL (2.2-3.9) 08/26/17 07:34 Albumin/Globulin Ratio 0.8 (1.0-2.1) L 08/26/17 07:34 Triglycerides 53 mg/dL (0-149) 08/22/17 16:04 Cholesterol 156 mg/dL (0-199) 08/22/17 16:04 LDL Cholesterol Direct 60 mg/dL (0-129) 08/22/17 16:04 HDL Cholesterol 64 mg/dL (30-70) 08/22/17 16:04 Lipase 88 U/L (23-300) 08/22/17 07:39 Free T4 0.93 ng/dL (0.78-2.19) 08/22/17 16:04 Thyroxine (T4) 6.14 ug/dL (5.5-11.0) 08/22/17 16:04 TSH 3rd Generation 1.16 mIU/L (0.46-4.68) 08/22/17 16:04 Urine Color Mitra (YELLOW) 08/22/17 07:54 Urine Clarity Clear (Clear) 08/22/17 07:54 Urine pH 6.0 (5.0-8.0) 08/22/17 07:54 Ur Specific [place] 1.021 (1.003-1.030) 08/22/17 07:54 Urine Protein 1+ mg/dL (NEGATIVE) H 08/22/17 07:54 Urine Glucose (UA) Normal mg/dL (Normal) 08/22/17 07:54 Urine Ketones Negative mg/dL (NEGATIVE) 08/22/17 07:54 Urine Blood Negative (NEGATIVE) 08/22/17 07:54 Urine Nitrate Negative (NEGATIVE) 08/22/17 07:54 Urine Bilirubin Negative (NEGATIVE) 08/22/17 07:54 Urine Urobilinogen 4.0 mg/dL (0.2-1.0) 08/22/17 07:54 Ur Leukocyte Esterase Neg [place]/uL (Negative) 08/22/17 07:54 Urine WBC (Auto) < 1 /hpf (0-5) 08/22/17 07:54 Urine RBC (Auto) 10 /hpf (0-3) H 08/22/17 07:54 Absolute Lymphs (Flow) 965 Cells/mcL (850-3900) 08/22/17 19:29 % CD3 Cells 58 Percent (57-85) 08/22/17 19:29 Absolute CD3 Count 559 Cells/mcL (840-3060) L 08/22/17 19:29 % CD4 Cells 19 Percent (30-61) L 08/22/17 19:29 Absolute CD4 Count 184 Cells/mcL (490-1740) L 08/22/17 19:29 T-Help/Suppress Ratio 0.50 Ratio (0.86-5.00) L 08/22/17 19:29 % CD8 Cells 38 Percent (12-42) 08/22/17 19:29 Absolute CD8 Count 367 Cells/mcL (180-1170) 08/22/17 19:29 Hepatitis A IgM Ab Negative (NEGATIVE) 08/22/17 16:04 Hep Bs Antigen Negative (NEGATIVE) 08/22/17 16:04 Hep B Core IgM Ab Negative (NEGATIVE) 08/22/17 16:04 Hepatitis C Antibody Negative (NEGATIVE) 08/22/17 16:04 HIV-1 RNA Qnt (RT-PCR) <1.30 not detected (Not Detected) 08/22/17 19:29 Attending/Attestation - Attestation I have personally seen and examined this patient.: Yes I have fully participated in the care of the patient.: Yes I have reviewed all pertinent clinical information, including history, physical exam and plan: Yes Notes (Text): Patient seen, examined and case discussed with biomedical specialist. Please defer to my physical exam from my progress note from earlier today. Patient had bowel movement following laxative and gas pains relieved with simethicone. Patient medically stable for discharge. Lab works including CD4 and hiv viral load provided to patient to f/u with PMD/ ID doctor. Patient to be provided information about Dr. Ayala's office upon discharge. Per GI no further intervention. Patient advised to f/u in regards to resolution of abnormal LFTS. Advised to not take tylenol/NSAIDs.
== END 2017-08-26 16:19 | disposition home or self-care (01) | DRG 417 ==
LOC: C.ER 06:14 → C.9E 14:07 → C.6T 16:20
PROVIDERS: ADMIT Hospitalist; ATTEND Hospitalist
PROC: 0WQF4ZZ Repair Abdominal Wall, Percutaneous Endoscopic Approach (ICD-10-PCS; 2017-08-23)
PROC: 0FT44ZZ Resection of Gallbladder, Percutaneous Endoscopic Approach (ICD-10-PCS; principal; 2017-08-23 15:15)
PROC: 0FC98ZZ Extirpation of Matter from Common Bile Duct, Via Natural or Artificial Opening Endoscopic (ICD-10-PCS; 2017-08-25)
PROC: 0DJ08ZZ Inspection of Upper Intestinal Tract, Via Natural or Artificial Opening Endoscopic (ICD-10-PCS; 2017-08-25)
DX: K80.42 Calculus of bile duct with acute cholecystitis without obstruction (principal); K42.9 Umbilical hernia without obstruction or gangrene; B20 Human immunodeficiency virus [HIV] disease; I69.354 Hemiplegia and hemiparesis following cerebral infarction affecting left non-dominant side; G61.81 Chronic inflammatory demyelinating polyneuritis; E78.00 Pure hypercholesterolemia, unspecified; J45.909 Unspecified asthma, uncomplicated; K59.00 Constipation, unspecified; K76.0 Fatty (change of) liver, not elsewhere classified; E78.5 Hyperlipidemia, unspecified; Z79.82 Long term (current) use of aspirin; Z79.899 Other long term (current) drug therapy

== ENCOUNTER 2018-03-10 06:14 | Observation (INO) | payer MEDICARE, OTHER ==
--- NOTE | 2018-03-10 08:39 | C.PDOC ---
History Of Present Illness 62 y/o M on ASA81 p/w epistaxis x 4 hours. States woke up with feeling of water from nose, found he was bleeding. States bleeding has slowed now but continues to create dabs of blood on tissue. Denies chest pain, dyspnea, palpitations. Time Seen by Provider: 03/10/18 07:10 Chief Complaint (Nursing): ENT Problem Past Medical History Vital Signs: Last Vital Signs Temp 98.2 F 03/10/18 07:30 Pulse 72 03/10/18 07:30 Resp 16 03/10/18 07:30 BP 113/76 03/10/18 07:30 Pulse Ox 98 03/10/18 07:30 - Medical History PMH: Gall Bladder Disease, HIV, Hypercholesterolemia Denies: Chronic Kidney Disease - [facility] Procedures APPLICATION OF SPLINT (01/26/14) EXTIRPATION OF MATTER FROM COMMON BILE DUCT, ENDO (08/22/17) INSPECTION OF UPPER INTESTINAL TRACT, ENDO (08/22/17) REPAIR ABDOMINAL WALL, PERCUTANEOUS ENDOSCOPIC APPROACH (08/22/17) RESECTION OF GALLBLADDER, PERCUTANEOUS ENDOSCOPIC APPROACH (08/22/17) Family History: States: Unknown Family Hx - Social History Hx Tobacco Use: No Hx Alcohol Use: No Hx Substance Use: No - Immunization History Hx Tetanus Toxoid Vaccination: No Hx Influenza Vaccination: No Hx Pneumococcal Vaccination: No Review Of Systems Except As Marked, All Systems Reviewed And Found Negative. Cardiovascular: Negative for: Chest Pain Respiratory: Negative for: Shortness of Breath Physical Exam - Physical Exam Additional Physical Exam Comments: Gen: NAD Head: NC/AT Eyes: No scleral icterus ENT: Small amount of blood seen in R nare. CV: Regular rate Lungs: No accessory muscle use Skin: No rash Neuro: Alert ED Course And Treatment - Laboratory Results Result Diagrams: 03/10/18 14:59 03/10/18 14:59 O2 Sat by Pulse Oximetry: 98 Medical Decision Making Medical Decision Making: Patient attempted to hold pressure with instruction in ED and no success. Placed anterior packing, continued to bleed, spitting blood out mouth. Posterior packing placed, continued. Afrin spray and posterior packing, continued. Dr. Alvarez came and packed patient posteriorly with gauze, still continues to bleed. Will take to OR. Dr. Ortiz accepts patient to her service. EKG NSR 80 bpm, no ST/T wave changes. CXR no acute disease. Disposition - Disposition Disposition: HOSPITALIZED Disposition Time: 12:30 Condition: FAIR - Clinical Impression Clinical Impression: Epistaxis
[2018-03-10] MEDS ORDERED: Oxymetazoline 0.05% Nasal Spray (30 ml) NS STA (11:05)
[2018-03-10 15:06] LABS: BASO # 0.1 K/uL (0.0-0.2); BASO % 0.8 % (0.0-2.0); EOS # 0.2 K/uL (0.0-0.7); EOS % 1.6 % (0.0-4.0); LYMPH # 3.6 K/uL (1.0-4.3); LYMPH % 37.2 % (20.0-40.0); MEAN CELL VOLUME 91.7 fL (80.0-94.0); MEAN CORPUSCULAR HEMOGLOBIN 30.5 pg (27.0-31.0); MEAN CORPUSCULAR HGB CONC 33.3 g/dL (33.0-37.0); MEAN PLATELET VOLUME 7.7 fL (7.2-11.7); MONO # 0.6 K/uL (0.0-0.8); MONO % 6.4 % (0.0-10.0); NEUT # 5.3 K/uL (1.8-7.0); NRBC % 0.1 % (0.0-2.0); RBC 4.59 Mil/uL (4.40-5.90); RED CELL DISTRIBUTION WIDTH 14.3 % (11.5-14.5); WHITE BLOOD COUNT 9.8 K/uL (4.8-10.8)
[2018-03-10 15:14] LABS: ALB/GLOB RATIO 1.1 (1.0-2.1); ALBUMIN 4.4 g/dL (3.5-5.0); ALT/SGPT 48 U/L (21-72); AST/SGOT 38 U/L (17-59); BLOOD UREA NITROGEN 20 mg/dL (9-20); GFR NON-AFRICAN AMERICAN > 60
[2018-03-10 15:15] LABS: INR 1.1; PROTHROMBIN TIME 12.3 SECONDS (9.7-12.2)
[2018-03-10] MEDS ORDERED: Propofol 10 mg/ml Inj (20 ML) ONE (15:29)
[2018-03-10] MEDS ORDERED: Midazolam 2 MG/2 ML VIAL ONE (15:29)
[2018-03-10] MEDS ORDERED: Succinylcholine Chloride 20 mg/ml Syr (5 ml) IV ONE (15:29)
[2018-03-10] MEDS ORDERED: EPINEPHrine 1:1000 Nasal Sol(30mL) ONE (15:38)
[2018-03-10] MEDS ORDERED: EPINEPHrine 1 mg/ml (1:1000) Inj ONE (15:38)
--- NOTE | 2018-03-10 16:21 | RAD ---
Date of service: 03/10/2018 HISTORY: epistaxis COMPARISON: 08/22/2017 FINDINGS: LUNGS: No active pulmonary disease. PLEURA: No significant pleural effusion identified, no pneumothorax apparent. CARDIOVASCULAR: No aortic atherosclerotic calcification present. Normal cardiac size. No pulmonary vascular congestion. OSSEOUS STRUCTURES: No significant abnormalities. VISUALIZED UPPER ABDOMEN: Normal. OTHER FINDINGS: None. IMPRESSION: No active disease.
[2018-03-10] MEDS ORDERED: HYDROmorphone 0.5 mg/0.5 ml ISec IVP PRN (16:54)
[2018-03-10] MEDS ORDERED: Simethicone 80 mg Chewtab PO PRN (17:34)
[2018-03-10] MEDS ORDERED: Fluticasone-Vilanterol 200/25mcg Diskus INH SCH (17:45)
[2018-03-10] MEDS: Oxycodone/Acetaminophen 5/325 mg Tab PO PRN (19:30)
[2018-03-11] MEDS: Oxycodone/Acetaminophen 5/325 mg Tab PO PRN (00:19)
[2018-03-11 07:54] VITALS: BP 105/66; PULSE 79; RESP 18; TEMP 98.4; O2SAT 96
[2018-03-11] MEDS ORDERED: BIKTARVY PO SCH (10:00)
[2018-03-11] MEDS ORDERED: cefTRIAXone IV 1 gm in Dextros 50 ML IVPB SCH (23:30)
--- NOTE | 2018-03-12 02:50 | HP ---
CHIEF COMPLAINT: Nose bleeding. HISTORY OF PRESENT ILLNESS: Mr. Carmelo So is a 62-year-old male, on aspirin 81 mg p.o. daily, came with epistaxis for four hours. States woke up with a feeling of water from the nose, found he was bleeding, states bleeding has slowed, but continuous and producing clots. Denies chest pain, dyspnea, palpitation, headache, dizziness at that moment, but when I saw the patient in his room, he was complaining about headache. Seen by ENT, Dr. Vicente Alvarez who did cauterization. No fever, no chills. PAST MEDICAL HISTORY: Gallbladder disease, HIV, and hypercholesterolemia. FAMILY HISTORY: Unknown. SOCIAL HISTORY: Smoking, negative. Alcohol, no. Substance abuse, no. ALLERGIES: THE PATIENT IS NOT ALLERGIC WITH ANY MEDICATIONS. MEDICATIONS: Home medications were reviewed by me. REVIEW OF SYSTEMS: The patient was seen and examined at bedside. Looking anxious. No burning of the eyes. Small amount of blood in the nostrils. No fever. No chills. No hematuria. No hematochezia. No swelling of the leg. PHYSICAL EXAMINATION: VITAL SIGNS: Temperature 98.2, pulse 72, respiratory rate 16, blood pressure 113/76, and pulse oximetry 98. HEENT: Head, normocephalic and atraumatic. Eyes, open. Nose, having packing with the draining system. Mucous membranes moist. NECK: Supple. No carotid bruits, JVD, or thyromegaly. CHEST: Bilaterally symmetrical. HEART: S1 and S2 positive. LUNGS: Clear to auscultation. ABDOMEN: Soft. Bowel sounds present. No organomegaly. EXTREMITIES: No edema. No cyanosis. NEUROLOGIC: The patient is awake and alert. Follows simple commands. LABORATORY DATA: White blood cell 9.8, hemoglobin 14, hematocrit 42, platelet 322. Sodium 141, potassium 4.4, BUN 20, creatinine 1, and glucose 113. ASSESSMENT AND PLAN: Mr. Carmelo So is a 62-year-old male with history of human immunodeficiency virus, hypertension, hypercholesterolemia, came with nose bleeding in emergency room of [facility] (Formerly [facility] The patient attempted to hold pressure with instructions in emergency department to stop nose bleeding, but no success, placed anterior packing, continued to bleed, sitting up. Blood is coming out of mouth. Posterior packing placed. Still bleeding. Afrin spray and posterior packing continued. Dr. Alvarez was invited. He came and packed the patient posteriorly with gauze, still continuous bleeding. Then, he took the patient to operating room. The patient was admitted under my service. EKG was normal with heart rate 80, sinus rhythm. Chest x-ray, not in acute distress. The patient has history of hypercholesterolemia. Dr. Alvarez did a nasal cauterization for bilateral control of the epistaxis. It was severe disease. The patient was complaining about headache. Tylenol given. was at bedside. Length of time discussion done. All questions answered. The patient has hyperglycemia, abnormal liver function test. Afrin is given on the nose. Gastrointestinal and deep venous thrombosis prophylaxes. Repeat laboratories. We will follow up. Dana Ortiz MD
[2018-03-12] MEDS ORDERED: Efavirenz/Emtricitabine/Teno 1 TAB PO SCH (10:00)
--- NOTE | 2018-03-12 20:53 | CARD ---
APPROVED REPORT Date of service: 03/10/2018 EKG Measurement Heart [id number] <Conclusion> Normal sinus rhythm Normal ECG
--- NOTE | 2018-03-14 07:47 | DS ---
The patient came in with epistaxis. Procedure was done by Dr. Alvarez, ENT. He cleared the patient. The patient was discharged home same day with followup, continue home medications, the family was around now. For details, see my H and P of 03/11/2018. Dana Ortiz MD
--- NOTE | 2018-03-21 16:08 | OP ---
PROCEDURE DATE: 03/11/2018 PREOPERATIVE DIAGNOSIS: Epistaxis. POSTOPERATIVE DIAGNOSIS: Epistaxis. PROCEDURE: Endoscopic cauterization of epistaxis, bilateral endoscopic inferior turbinate reduction. SURGEON: Vicente Alvarez MD DESCRIPTION OF PROCEDURE The patient was brought into room, placed in supine position. Anesthesia was initiated through an ET tube. Nasal packing was removed. Attention was first turned to the right. Inferior turbinate was reduced in size going from inferior to superior, anterior posterior direction using scissors and endoscopy. Bleeding was controlled using suction cautery. The area of the sphenopalatine artery was cauterized using suction Bovie. Next, attention was turned to the other side. The inferior turbinate was reduced in size going from inferior to superior, anterior posterior direction using scissors. Bleeding was controlled using suction cautery. The area of the sphenopalatine artery was cauterized. Bleeding was controlled. The patient was taken off anesthesia and taken to recovery room in stable manner. Vicente Alvarez MD
== END 2018-03-11 16:00 | disposition home or self-care (01) ==
LOC: C.ER 06:14 → C.6T 14:45
PROVIDERS: ADMIT Internal Medicine; ATTEND Internal Medicine
DX: R04.0 Epistaxis (principal); B20 Human immunodeficiency virus [HIV] disease; E78.00 Pure hypercholesterolemia, unspecified; I10 Essential (primary) hypertension; Z79.82 Long term (current) use of aspirin
CPT/HCPCS: 30140; 31238; 71045; 80053; 85025; 85610; 85730; 86850; 86900; 88304; 93005; 99285; G0378; J2001; J2250; J2704; J3010; J7030; J7040

== ENCOUNTER 2018-05-30 07:16 | Day surgery (SDC) | payer MEDICARE, OTHER | END 2018-05-30 10:25 | disposition home or self-care (01) | LOC: C.ENDO 07:16 | DX: Z12.11 Encounter for screening for malignant neoplasm of colon (principal) ==

== ENCOUNTER 2018-06-27 09:20 | Outpatient (CLI) | payer MEDICARE, OTHER | END 2018-06-27 09:21 | disposition home or self-care (01) | LOC: C.LAB 09:20 ==

== ENCOUNTER 2018-07-02 08:36 | Outpatient (CLI) | payer MEDICARE, OTHER | END 2018-07-02 08:37 | disposition home or self-care (01) | LOC: C.CTH 08:36 ==

== ENCOUNTER 2018-08-02 06:07 | Day surgery (SDC) | payer MEDICARE, OTHER ==
[2018-08-01 11:31] VITALS: BMI 25.0
[2018-08-02] MEDS ORDERED: Propofol 10 mg/ml Inj (20 ML) ONE (08:05)
[2018-08-02] MEDS ORDERED: Lidocaine Hydrochloride 5 ML INJ ONE (08:05)
[2018-08-02 09:11] VITALS: TEMP 97
[2018-08-02 09:21] VITALS: BP 120/70; PULSE 75; RESP 20; O2SAT 97
== END 2018-08-02 09:35 | disposition home or self-care (01) ==
LOC: C.ENDO 06:07
PROVIDERS: ATTEND Internal Medicine Gastroenterology
DX: K44.9 Diaphragmatic hernia without obstruction or gangrene (principal); K29.50 Unspecified chronic gastritis without bleeding; K21.0 Gastro-esophageal reflux disease with esophagitis; K31.9 Disease of stomach and duodenum, unspecified; R13.10 Dysphagia, unspecified; G40.909 Epilepsy, unspecified, not intractable, without status epilepticus; Z79.899 Other long term (current) drug therapy; E55.9 Vitamin D deficiency, unspecified; B20 Human immunodeficiency virus [HIV] disease; Z79.82 Long term (current) use of aspirin; E78.5 Hyperlipidemia, unspecified; J45.909 Unspecified asthma, uncomplicated
CPT/HCPCS: 43239; 88305; 88312; 88342; J2704

== ENCOUNTER 2018-08-06 08:38 | Outpatient (CLI) | payer MEDICARE, OTHER | END 2018-08-06 08:39 | disposition home or self-care (01) | LOC: C.LAB 08:38 | DX: T42.5X6A Underdosing of mixed antiepileptics, initial encounter (principal) ==